=== PATIENT | female | born 1960 | race Caucasian/White ===

== ENCOUNTER 2019-01-18 07:41 | Inpatient (IN) | payer BC ==
[2019-01-14 11:18] LABS: BASOPHILS # (AUTO) 0.1 (0.0-0.1); BASOPHILS % 0.8 % (0.0-1.0); EOSINOPHILS # (AUTO) 0.2 (0.0-0.4); EOSINOPHILS % 2.9 % (0.0-6.0); HEMATOCRIT 40.7 % (34.2-44.1); HEMOGLOBIN 12.6 g/dL (12.0-16.0); LYMPHOCYTES # (AUTO) 2.1 (1.0-3.2); LYMPHOCYTES % 28.3 % (18.0-39.1); MEAN CORPUSCULAR HEMOGLOBIN 27.6 pg (28-32); MEAN CORPUSCULAR VOLUME 89.3 fL (81-99); MONOCYTES # (AUTO) 0.6 (0.2-0.8); MONOCYTES % 8.7 % (4.4-11.3); NEUTROPHILS # (AUTO) 4.3 (2.1-6.9); PLATELET COUNT 275 x10e3/uL (140-360); RED BLOOD COUNT 4.56 x10e6/uL (3.6-5.1); RED CELL DISTRIBUTION WIDTH 15.8 % (11.7-14.4)
[2019-01-14 11:38] LABS: ANION GAP 12.2 mmol/L (8-16); BLOOD UREA NITROGEN 19 mg/dL (7-26); BUN/CREATININE RATIO 26 (6-25); CALCIUM 9.4 mg/dL (8.4-10.2); CARBON DIOXIDE 32 mmol/L (22-29); CHLORIDE 98 mmol/L (98-107); CREATININE, SERUM 0.73 mg/dL (0.57-1.11); EST GLOMERULAR FILTRATION RATE > 60 ML/MIN (60-); GLUCOSE 105 mg/dL (74-118); POTASSIUM 4.2 mmol/L (3.5-5.1); SODIUM 138 mmol/L (136-145)
--- NOTE | 2019-01-14 12:00 | Diagnostic Imaging Report ---
EXAMINATION: CHEST 2 VIEWS INDICATION: Pre-operative COMPARISON: None FINDINGS: TUBES and LINES: None. LUNGS: The lung volumes are normal. No focal consolidation or pulmonary edema. PLEURA: No pleural effusion or pneumothorax. HEART AND MEDIASTINUM: The cardiomediastinal silhouette is normal in size and contour. Atherosclerotic calcifications of the thoracic aorta. BONES AND SOFT TISSUES: No acute fracture or dislocation. Degenerative changes of the visualized spine. UPPER ABDOMEN: No free air under the diaphragm. IMPRESSION: No focal pneumonia or pulmonary edema. Signed by: Silvio Echols MD on 01/14/2019 11:57 AM
[~2019-01-18] VITALS: Ht 165.1 cm; Wt 129.3 kg
[~2019-01-18 07:41] MED LIST: ASPIRIN81 MG PO; GRALISE600 MG PO; HYDROXYCHLOROQ200 MG PO; ISOSORBIDE MONO30 MG PO; METOPROLOL SUCC50 MG PO; MIRAPEX0.25 MG PO; PRAVASTATIN SOD10 MG PO; SPIRONOLACTONE25 MG PO; ULTRAM50 MG PO
--- OUTSIDE RECORDS SUMMARY | 2019-01-18 08:04 | XMS REPORT | Continuity of Care Document ---
Author Author [facility] Address Unknown Phone Unavailable Care Team Providers Care Lime Trimmer Name Role Phone [employer] Information Myagi Unavailable Unavailable Problems Problem Status Onset Date Classification Date Reported Comments Source M79.604 - PAIN IN RIGHT LEG Active 07/04/2016 [facility] [place] FHx: pneumonia Resolved Problem 11/23/2018 [facility], [facility] [place], [facility] [place] Hx of Sjogren's disease Resolved Problem 11/23/2018 [facility], [facility] [place], [facility] [place] Hx of osteoarthritis Resolved Problem 11/23/2018 [facility], [facility] [place], [facility] [place] High blood pressure Resolved Problem 11/23/2018 [facility], [facility] [place], [facility] [place] Morbid obesity Active Problem 11/23/2018 [facility], [facility] [place], [facility] [place] Osteoporosis Resolved Problem 11/23/2018 [facility], [facility] [place], [facility] [place] Small fiber polyneuropathy Resolved Problem 11/23/2018 [facility], [facility] [place], [facility] [place] Medications No Data Provided for This Section Allergies, Adverse Reactions, Alerts Substance Category Reaction Severity Reaction type Status Date Reported Comments Source Antihistamine Assertion Drug allergy Active [facility] Immunizations No Data Provided for This Section Results No Data Provided for This Section Pathology Reports No Data Provided for This Section Diagnostic Reports Report Value Date Source Hip bilat w pelvis and both lat hips DX Exam: Pelvis x- ray, one view and bilateral hip x-rays 2 views each Reason for Exam: - M16.9 Osteoarthritis of hip, unspecified; M19.90 Unspecified osteoarthritis, unspecified site Comparison Exam: None Discussion: No fractures or dislocations are seen within the pelvis or hips. The SI joints, pubic symphysis, and hip joints are intact. No evidence for avascular necrosis within the femoral heads. No suspicious osteoblastic or osteolytic lesions. No dilated loops of bowel within the visualized portions of the pelvis. Impression: 1. Unremarkable x-ray of the pelvis and bilateral hips. 01/01/2019 MAN[facility] Fidel Shoulder 2+ Views Bilateral DX EXAM: XR BILATERAL SHOULDER 3 VIEWS DATE: 12/16/2017 9:10 AM CDT INDICATION: - M06.9 Rheumatoid arthritis, unspecified COMPARISON: None TECHNIQUE: 3 views of the bilateral shoulders FINDINGS: Right shoulder: Moderate glenohumeral joint osteoarthrosis visualized. Mild osteophytes seen along the radial tuberosity consistent with rotator cuff pathology. Mild AC joint degenerative joint disease also visualized. There is moderate-sized subacromial spur. Left shoulder: Moderate glenohumeral joint osteoarthrosis visualized. Mild osteophytes seen along the radial tuberosity consistent with rotator cuff pathology. Mild AC joint degenerative joint disease also visualized. There is tiny subacromial spur. No soft tissue abnormality is identified. IMPRESSION: 1. Moderate osteoarthrosis of both shoulder joints. 2. Subacromial spur is worse on the right side. 3. Ossific densities along the rotator cuff insertion representing with significant tendinosis bilaterally. 12/16/2017 MANSI Burns Bone Density [employer] MA BONE DENSITY ASSESSMENT: 12/16/2017 CLINICAL DATA: Post menopausal. M81.8/M81.8 Other Osteoporosis Without Current Pathological Fracture RISK FACTORS: race. COMPARISON: 11/24/2015 Left femur neck using a Hologic unit from [facility] with reported high fracture risk, BMD of 0.527g/cm2, T-score of -2.90, Z-score of -1.70, 62.0% reference, and 73.0% age-match bone mineralization. 11/24/2015 Right femur neck using a Hologic unit from [facility] with reported high fracture risk, BMD of 0.537g/cm2, T-score of -2.80, Z-score of -1.60, 63.0% reference, and 75.0% age-match bone mineralization. 11/24/2015 AP L1-L4 region of spine using a Hologic unit from [facility] with reported medium fracture risk, BMD of 0.894g/cm2, T-score of -1.40, Z-score of -0.10, 85.0% reference, and 98.0% age- match bone mineralization. FINDINGS: Bone density evaluation was performed 12/16/2017 on the right femur neck using a Hologic unit. The BMD average for the exam is 0.342 g/cm2. The T-score is -4.60 and the Z-score is -3.30. Since the previous similar exam of 11/24/2015, there has been a -0.195 or -36.3% change in the BMD value which represents a slight interval decrease in bone density. This matches the World Health Organization&ap os;s criteria for osteoporosis and places the patient at a high risk for fracture. An additional bone density evaluation was performed 12/16/2017 on the left femur neck using a Hologic unit. The BMD average for the exam is 0.422 g/cm2. The T- score is -3.80 and the Z-score is -2.60. Since the previous similar exam of 11/24/2015, there has been a -0.105 or -19.9% change in the BMD value which represents a slight interval decrease in bone density. This matches the World Health Organization's criteria for osteoporosis and places the patient at a high risk for fracture. An additional bone density evaluation was performed 12/16/2017 on the right total femur area using a Hologic unit. The BMD average for the exam is 0.598 g/cm2. The T-score is -2.80 and the Z-score is -1.90. This matches the World Health Organization's criteria for osteoporosis and places the patient at a high risk for fracture. An additional bone density evaluation was performed 12/16/2017 on the left total femur area using a Hologic unit. The BMD average for the exam is 0.611 g/cm2. The T-score is -2.70 and the Z-score is -1.80. This matches the World Health Organization's criteria for osteoporosis and places the patient at a high risk for fracture. An additional bone density evaluation was performed 12/16/2017 on the AP L1-L4 region of spine using a Hologic unit. The BMD average for the exam is 0.866 g/cm2. The T-score is -1.60 and the Z-score is -0.20. Since the previous similar exam of 11/24/2015, there has been a -0.028 or -3.1% change in the BMD value which represents no significant interval change in bone density. This matches the World Health Organization's criteria for osteopenia and places the patient at a medium risk for fracture. IMPRESSION: SEVERE OSTEOPOROSIS Patient is at extremely high risk for fracture. Recheck of BMD in 1-2 years and patient consult w/primary care provider are recommended. This exam was interpreted at [id number] for [facility]. 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 CLINICAL INDICATION: bilateral leg pain. Suspect small fiber neuropathy, rule out L5 and S1 radiculopathy. TECHNIQUE: Multiplanar, multisequence MRI lumbar spine without IV contrast COMPARISON: Unavailable FINDINGS: For the purposes of enumeration, the lowest well formed intervertebral disc was counted as L5-S1 on this exam. INTRASPINAL CONTENTS/CONUS: The conus terminates at L1-L2. No definite dural based lesion. VERTEBRAE: The vertebrae are normal in height and alignment. No focal suspicious bone marrow signal abnormality. PARASPINAL SOFT TISSUES: No edema or definite masses. No aortic aneurysm. Disc spaces, spinal canal, and neural foramina: T12-L1. Intervertebral disc height and signal are maintained. Posterior elements are normal. There is no stenosis. L1-L2. Intervertebral discs is dehydrated with central zone annular fissuring. Facets are unremarkable. Central canal measures 13 mm. Neural foramina are patent. L2-L3. Loss of intervertebral disc height and signal with small diffuse bulge. Facets are unremarkable. Central canal measures 13 mm. Lateral recesses and neural foramina are patent. L3-L4. Intervertebral disc height and signal are maintained. Posterior elements are normal. There is no stenosis. L4-L5. Intervertebral disc is dehydrated without height loss. There is central zone annular fissuring. There is facet hypertrophy with ligamentous redundancy. Central canal measures 9 mm with no cauda equina crowding. Lateral recesses are patent. Neural foramina are patent. L5-S1. Intervertebral disc height and signal are maintained. Left facets are mildly enlarged. Central canal measures 10 mm, and there is an 'empty sac' appearance. Lateral recesses and neural foramina are patent. IMPRESSION: 1. Mild L4-L5 central canal stenosis without definite cauda equina mass effect. 2. No lumbar foraminal nerve root compression 3. 'Empty sella' appearance at L5-S1 suggestive of arachnoiditis, likely chronic 08/30/2016 MAN[facility] Parra Bone Density [employer] MA - Bone Density [employer] MA BONE DENSITY EVALUATION: 11/24/2015 CLINICAL DATA: Post menopausal. Drug Induced Osteoporosis. RISK FACTORS: race. FINDINGS: Bone density evaluation was performed 11/24/2015 on the AP L1-L4 region of spine using a Hologic unit. The BMD average for the exam is 0.894 g/cm2. The T-score is -1.40 and the Z-score is -0.10. These values indicate 85.0% of bone mineralization for young normals and 98.0% for age-matched controls. This matches the World Health Organization's criteria for osteopenia and places the patient at a medium risk for fracture. An additional bone density evaluation was performed 11/24/2015 on the right femur neck using a Hologic unit. The BMD average for the exam is 0.537 g/cm2. The T-score is -2.80 and the Z-score is -1.60. These values indicate 63.0% of bone mineralization for young normals and 75.0% for age-matched controls. This matches the World Health Organization's criteria for osteoporosis and places the patient at a high risk for fracture. An additional bone density evaluation was performed 11/24/2015 on the left femur neck using a Hologic unit. The BMD average for the exam is 0.527 g/cm2. The T- score is -2.90 and the Z-score is -1.70. These values indicate 62.0% of bone mineralization for young normals and 73.0% for age-matched controls. This matches the World Health Organization's criteria for osteoporosis and places the patient at a high risk for fracture. IMPRESSION: OSTEOPOROSIS Patient is at high risk for fracture. Recheck of BMD in 1-2 years and patient consult w/primary care provider are recommended. This exam was dictated and interpreted by [id number] for [facility]. Leida Bryant M.D. zina/víctor:11/24/2015 14:15:48 Regional Sales Director: Leonie MOORE (R)([place]), [facility] 11/24/2015 [facility] [place] Chest 2 views DX EXAM: XR CHEST 2 VIEWS DATE: 12/22/2014 INDICATION: 786.2 Cough/710.2 Sicca Syndrome COMPARISON: None available TECHNIQUE: Frontal and lateral chest radiographs DISCUSSION: The lungs are clear. No evidence for pleural effusion or pneumothorax. Heart is at the upper limits of normal in size. No acute bony abnormality is identified. IMPRESSION: No acute cardiopulmonary abnormality identified. 12/22/2014 [facility] Consultation Notes No Data Provided for This Section Discharge Summaries No Data Provided for This Section History and Physicals No Data Provided for This Section Vital Signs No Data Provided for This Section Encounters Location Location Details Encounter Type Encounter Number Reason For Visit Attending Provider ADM Date DC Date Status Source [facility] [place] [facility] [id number] Yogesh Corea 12/22/2014 12/23/2014 [facility] [place] Out[facility] [id number] Yogesh Corea 11/24/2015 11/25/2015 [facility] [place] [facility] [id number] Yogesh Corea 03/28/2016 03/29/2016 [facility] [place] [facility] [id number] [facility] Active [facility] [id number] [facility] Active [facility] [place] [facility] [id number] Addie Morse 08/30/2016 08/31/2016 [facility] [place] [facility] [place] [facility] [id number] Yogesh Corea 12/16/2017 [facility] [place] [facility] [id number] Yogesh Corea 12/16/2017 12/17/2017 [facility] [place] Out[facility] [id number] ADDIE UNIQUE 05/06/2018 Active [facility] Ambulatory Pre-Reg [id number] Addie Unique 05/06/2018 05/06/2018 [facility] Procedures Procedure Code Date Perfomer Comments Source Ankle fusion 93062045 [facility] [place] Hysterectomy [id number] [facility] [place] Ankle fusion [id number] [facility] Hysterectomy [id number] [facility] Ankle fusion [id number] [facility] [place] Hysterectomy [id number] [facility] [place] Assessment and Plan No Data Provided for This Section Plan of Care No Data Provided for This Section Social History Social History Date Source Social History TypeResponse Substance Abuse Use: None. Alcohol Never Smoking Status Former smoker; Ready to change: No; Concerns about tobacco use in household: No; Exposed at work; Lives with someone who smokes; Cigarette Smoking Last 365 Days No; Reg Smoking Cessation Counseling No entered on: 07/03/16 07/03/2016 [facility] Social History TypeResponse Substance Abuse Use: None. Alcohol Never Smoking Status Former smoker; Ready to change: No; Concerns about tobacco use in household: No; Exposed at work; Lives with someone who smokes; Cigarette Smoking Last 365 Days No; Reg Smoking Cessation Counseling No entered on: 07/03/16 07/03/2016 [facility] Social History TypeResponse Substance Abuse Use: None. Alcohol Never Smoking Status Former smoker; Ready to change: No; Concerns about tobacco use in household: No; Exposed at work; Lives with someone who smokes; Cigarette Smoking Last 365 Days No; Reg Smoking Cessation Counseling No 07/03/2016 [facility] Parra Family History No Data Provided for This Section Advance Directives No Data Provided for This Section Functional Status No Data Provided for This Section
--- OUTSIDE RECORDS SUMMARY | 2019-01-18 08:05 | XMS REPORT | Summary of Care ---
Author Author [facility] [place] Organization [facility] [place] Address Unknown Phone Unavailable Encounter HQ Daniel(FIN) [id number] Date(s): 12/16/17 - 12/16/17 [facility] [place] [address] [place] [phone] Discharge Disposition: Home or Self Care Attending Physician: Yogesh Corea MD Vital Signs No data available for this section Problem List Condition Effective Dates Status Health Status Informant FHx: Resolved pneumonia(Confirmed) Hx of Sjogren's Resolved disease(Confirmed) Hx of Resolved osteoarthritis(Confi rmed) High blood Resolved pressure(Confirmed) Morbid Active obesity(Confirmed) Osteoporosis(Confirm Resolved ed) Small fiber Resolved polyneuropathy(Confi rmed) Allergies, Adverse Reactions, Alerts Substance Reaction Severity Status Antihistamine Active Medications No data available for this section Results No data available for this section Immunizations No data available for this section Procedures Procedure Date Related Diagnosis Body Site Status Ankle fusion Completed Hysterectomy Completed Social History Social History Type Response Substance Abuse Use: None. Alcohol Never Smoking Status Former smoker; Ready to change: No; Concerns about tobacco use in household: No; Exposed at work; Lives with someone who smokes; Cigarette Smoking Last 365 Days No; Reg Smoking Cessation Counseling No entered on: 07/03/16 Assessment and Plan No data available for this section
--- OUTSIDE RECORDS SUMMARY | 2019-01-18 08:05 | XMS REPORT | Summary of Care ---
Author Author [facility] [place] Organization [facility] [place] Address Unknown Phone Unavailable Encounter HQ Daniel(FIN) [id number] Date(s): 12/16/17 - 12/16/17 [facility] [place] [address] [place] [phone] Discharge Disposition: Home or Self Care Attending [...]
--- OUTSIDE RECORDS SUMMARY | 2019-01-18 08:06 | XMS REPORT | Summary of Care ---
Author Author [facility] Organization [facility] Address Unknown Phone Unavailable Encounter HQ Daniel(FIN) [id number] Date(s): 05/06/18 - 05/06/18 [facility] [address] [facility] [address] [place] [address]- Attending Physician: Idris Morse MD Referring Physician: Zulay Dominguez MD Vital Signs No data available for [...]
--- OUTSIDE RECORDS SUMMARY | 2019-01-18 08:06 | XMS REPORT | Summary of Care ---
Author Organization Unknown Address Unknown Phone Unavailable Encounter HQ Encntr_alias(FIN) [id number] Date(s): 12/22/14 - 12/22/14 [facility] Outpatient Imaging [address] [phone] Discharge Disposition: Home Physician Attending: Yogesh Corea MD Vital Signs No data available for this section Problem List No data available for this section Allergies, Adverse Reactions, Alerts No data available for this section Medications No data available for this section Results No data available for this section Immunizations No data available for this section Procedures No data available for this section Social History No data available for this section Assessment and Plan No data available for this section
--- OUTSIDE RECORDS SUMMARY | 2019-01-18 08:06 | XMS REPORT | Summary of Care ---
Author Author [facility] [place] Organization [facility] [place] Address Unknown Phone Unavailable Encounter JEFE Sanchez(FIN) [id number] Date(s): 08/30/16 - 08/30/16 [facility] [place] [address] [place] [phone] Discharge Disposition: Home or Self Care Attending Physician: Idris Morse MD Vital Signs No data available for [...] Procedures Procedure Date Related Diagnosis Body Site Ankle fusion Hysterectomy Social History Social History Type Response Substance Abuse Use: None. Alcohol Never Smoking Status Former smoker; Ready to change: No; Concerns about tobacco use in household: No; Exposed at work; Lives with someone who smokes; Cigarette Smoking Last 365 Days No; Reg Smoking Cessation Counseling No Assessment and Plan No data available for this section
--- OUTSIDE RECORDS SUMMARY | 2019-01-18 08:06 | XMS REPORT | Summary of Care ---
Author Author [facility] [place] Address Unknown Phone Unavailable Encounter HQ Encntr_alias(FIN) [id number] Date(s): 03/28/16 - 03/28/16 [facility] [place] [address] [place] [phone] Discharge Disposition: Home or Self Care Attending [...]
--- OUTSIDE RECORDS SUMMARY | 2019-01-18 08:06 | XMS REPORT | Summary of Care ---
Author Author [facility] [place] [facility] [place] Address Unknown Phone Unavailable Encounter HQ Encntr_alias(FIN) [id number] Date(s): 11/24/15 - 11/24/15 [facility] [place] [address] [place] [phone] Discharge Disposition: Home Attending Physician: Yogesh Corea MD Vital Signs [...]
[2019-01-18] MEDS ORDERED: CEFAZOLIN SOD 1 GM/NS 50ML 100 ML IV ONE (08:07)
--- OUTSIDE RECORDS SUMMARY | 2019-01-18 08:07 | XMS REPORT ---
Author Author [facility] Address Unknown Phone Unavailable Care Team Providers Care Director Oracle Name Role Phone Huma KAN Unavailable Unavailable Payers Payer Name Policy Type Policy Number Effective Date Expiration Date Problems This patient has no known problems. Allergies, Adverse Reactions, Alerts Allergy Name Allergy Type Status Severity Reaction(s) Onset Date Inactive Date Treating Clinician Comments hydrocodone DA Active MO 2018-12-26 00:00:00 hydrocodone DA Active MO 2018-11-02 00:00:00 hydrocodone DA Active MO 2018-03-09 00:00:00 acetaminophen DA Active MO 2018-03-09 00:00:00 hydrocodone DA Active U 2009-08-27 00:00:00 acetaminophen DA Active U 2009-08-27 00:00:00 Medications This patient has no known medications. Results Test Description Test Time Test Comments Text Results Atomic Results Result Comments CHEST 2 VIEWS 2019-01-14 11:55:00 [place] [id number] Patient Name: MARIA ANTONIA FLOWERS MR #: [id number] : 1960 Age/Sex: 58/F Req #: [id number] Adm Physician: Ordered by: VIKTOR KAN MD Report #: [id number] Location: OR Room/Bed: Procedure: [id number] DX/CHEST 2 VIEWS Exam Date: 01/14/19 Exam Time: 1050 REPORT STATUS: Signed EXAMINATION: CHEST 2 VIEWS INDICATION: Pre-operative COMPARISON: None FINDINGS: TUBES and LINES: None. LUNGS: The lung volumes are normal. No focal consolidation or pulmonary edema. PLEURA: No pleural effusion or pneumothorax. HEART AND MEDIASTINUM: The cardiomediastinal silhouette is normal in size and contour. Atherosclerotic calcifications of the thoracic aorta. BONES AND SOFT TISSUES: No acute fracture or dislocation. Degenerative changes of the visualized spine. UPPER ABDOMEN: No free air under the diaphragm. IMPRESSION: No focal pneumonia or pulmonary edema. Signed by: Janusz Morris MD on 01/14/2019 11:57 AM Dictated By: JANUSZ MORRIS MD 1157 Transcribed By: KINGSLEY on 01/14/19 1157 COPY TO: VIKTOR KAN MD COMPREHENSIVE METABOLIC PANEL 2018-12-29 09:40:00 SODIUM (test code=NA) 140 mEq/L 134-147 POTASSIUM (test code=K) 4.4 mEq/L 3.4-5.0 CHLORIDE (test code=CL) 101 mEq/L 100-108 CARBON DIOXIDE (test code=CO2) 36 mEq/L 21-33 ANION GAP (test code=GAP) 7 0-20 GLUCOSE (test code=GLU) 99 mg/dL 70-110 BLOOD UREA NITROGEN (test code=BUN) 35 mg/dL 7-18 GLOMERULAR FILTRATION RATE (test code=GFR) 85.4 80-90 Units of measure=ml/min/1.73 m2 CREATININE (test code=CREAT) 0.7 mg/dL 0.6-1.3 TOTAL PROTEIN (test code=PROT) 7.0 g/dL 6.4-8.2 ALBUMIN (test code=ALB) 3.10 g/dL 3.4-5.0 CALCIUM (test code=CA) 8.8 mg/dL 8.0-10.5 BILIRUBIN TOTAL (test code=BILT) 0.10 mg/dL 0.0-1.0 SGOT/AST (test code=AST) 7 IUnit/L 15-37 SGPT/ALT (test code=ALT) 17 IUnit/L 15-65 ALKALINE PHOSPHATASE TOTAL (test code=ALKP) 86 IUnit/L 20-125 CBC W/AUTO [id number] 08:00:00* Test Item Value Reference Range Comments WHITE BLOOD CELL (test code=WBC) 14.12 x10 3/uL 4.5-11.0 RED BLOOD CELL (test code=RBC) 4.27 x10 6/uL 3.54-5.02 HEMOGLOBIN (test code=HGB) 11.6 g/dL 11.0-15.0 HEMATOCRIT (test code=HCT) 39.4 % 33.0-45.0 MEAN CELL VOLUME (test code=MCV) 92.3 fL 81.0-99.0 MEAN CELL HGB (test code=MCH) 27.2 pg 27.0-33.0 MEAN CELL HGB CONCETRATION (test code=MCHC) 29.4 g/dL 33.0-37.0 RED CELL DISTRIBUTION WIDTH CV (test code=RDW) 16.0 % 11.5-14.5 RED CELL DISTRIBUTION WIDTH SD (test code=RDW-SD) 54.8 fL 37.0-54.0 PLATELET COUNT (test code=PLT) 303 x10 3/uL 150-400 MEAN PLATELET VOLUME (test code=MPV) 11.4 fL 7.0-9.0 NEUTROPHIL % (test code=NT%) 76.3 % 56.0-77.0 IMMATURE GRANULOCYTE % (test code=IG%) 0.6 % 0.0-2.0 LYMPHOCYTE % (test code=LY%) 14.5 % 14.0-32.0 MONOCYTE % (test code=MO%) 8.5 % 4.8-9.0 EOSINOPHIL % (test code=EO%) 0.0 % 0.3-3.7 BASOPHIL % (test code=BA%) 0.1 % 0.0-2.0 NUCLEATED RBC % (test code=NRBC%) 0.0 % 0-0 NEUTROPHIL # (test code=NT#) 10.76 x10 3/uL 2.0-7.6 IMMATURE GRANULOCYTE # (test code=IG#) 0.09 x10 3/uL 0.00-0.03 LYMPHOCYTE # (test code=LY#) 2.05 x10 3/uL 1.0-3.8 MONOCYTE # (test code=MO#) 1.20 x10 3/uL 0.1-0.8 EOSINOPHIL # (test code=EO#) 0.00 x10 3/uL 0.0-0.2 BASOPHIL # (test code=BA#) 0.02 x10 3/uL 0.0-0.2 NUCLEATED RBC # (test code=NRBC#) 0.00 x10 3/uL 0.0-0.1 MANUAL DIFF REQUIRED (test code=MDIFF) NO B-TYPE NATRIURETIC [id number] 11:42:00* Test Item Value Reference Range Comments B-TYPE NATRIURETIC PEPTIDE (test code=BNP) 52.4 PG/ML 0-100 CBC W/AUTO [id number] 07:52:00* Test Item Value Reference Range Comments WHITE BLOOD CELL (test code=WBC) 11.47 x10 3/uL 4.5-11.0 RED BLOOD CELL (test code=RBC) 4.28 x10 6/uL 3.54-5.02 HEMOGLOBIN (test code=HGB) 11.7 g/dL 11.0-15.0 HEMATOCRIT (test code=HCT) 39.5 % 33.0-45.0 MEAN CELL VOLUME (test code=MCV) 92.3 fL 81.0-99.0 MEAN CELL HGB (test code=MCH) 27.3 pg 27.0-33.0 MEAN CELL HGB CONCETRATION (test code=MCHC) 29.6 g/dL 33.0-37.0 RED CELL DISTRIBUTION WIDTH CV (test code=RDW) 16.1 % 11.5-14.5 RED CELL DISTRIBUTION WIDTH SD (test code=RDW-SD) 54.4 fL 37.0-54.0 PLATELET COUNT (test code=PLT) 284 x10 3/uL 150-400 MEAN PLATELET VOLUME (test code=MPV) 11.5 fL 7.0-9.0 NEUTROPHIL % (test code=NT%) 90.7 % 56.0-77.0 IMMATURE GRANULOCYTE % (test code=IG%) 0.3 % 0.0-2.0 LYMPHOCYTE % (test code=LY%) 7.3 % 14.0-32.0 MONOCYTE % (test code=MO%) 1.5 % 4.8-9.0 EOSINOPHIL % (test code=EO%) 0.0 % 0.3-3.7 BASOPHIL % (test code=BA%) 0.2 % 0.0-2.0 NUCLEATED RBC % (test code=NRBC%) 0.0 % 0-0 NEUTROPHIL # (test code=NT#) 10.40 x10 3/uL 2.0-7.6 IMMATURE GRANULOCYTE # (test code=IG#) 0.04 x10 3/uL 0.00-0.03 LYMPHOCYTE # (test code=LY#) 0.84 x10 3/uL 1.0-3.8 MONOCYTE # (test code=MO#) 0.17 x10 3/uL 0.1-0.8 EOSINOPHIL # (test code=EO#) 0.00 x10 3/uL 0.0-0.2 BASOPHIL # (test code=BA#) 0.02 x10 3/uL 0.0-0.2 NUCLEATED RBC # (test code=NRBC#) 0.00 x10 3/uL 0.0-0.1 MANUAL DIFF REQUIRED (test code=MDIFF) NO COMPREHENSIVE METABOLIC [id number] 07:39:00* Test Item Value Reference Range Comments SODIUM (test code=NA) 130 mEq/L 134-147 POTASSIUM (test code=K) 4.5 mEq/L 3.4-5.0 CHLORIDE (test code=CL) 94 mEq/L 100-108 CARBON DIOXIDE (test code=CO2) 33 mEq/L 21-33 ANION GAP (test code=GAP) 8 0-20 GLUCOSE (test code=GLU) 164 mg/dL 70-110 BLOOD UREA NITROGEN (test code=BUN) 24 mg/dL 7-18 GLOMERULAR FILTRATION RATE (test code=GFR) 102.0 80-90 Units of measure=ml/min/1.73 m2 CREATININE (test code=CREAT) 0.6 mg/dL 0.6-1.3 TOTAL PROTEIN (test code=PROT) 7.4 g/dL 6.4-8.2 ALBUMIN (test code=ALB) 3.10 g/dL 3.4-5.0 CALCIUM (test code=CA) 9.1 mg/dL 8.0-10.5 BILIRUBIN TOTAL (test code=BILT) 0.20 mg/dL 0.0-1.0 SGOT/AST (test code=AST) 11 IUnit/L 15-37 SGPT/ALT (test code=ALT) 14 IUnit/L 15-65 ALKALINE PHOSPHATASE TOTAL (test code=ALKP) 98 IUnit/L 20-125 [id number] 07:39:00* Test Item Value Reference Range Comments PHOSPHOROUS (test code=PHOS) 3.0 mg/dL 2.5-4.9 [id number] 07:39:00* Test Item Value Reference Range Comments MAGNESIUM (test code=MAG) 2.00 mg/dL 1.8-2.4 [id number] 14:40:00* Test Item Value Reference Range Comments TROPONIN-I (test code=TROPI) < 0.015 ng/mL 0.000-0.045 Negative: <=0.045 Positive: >=0.046 Correlation with serial results, other cardiac markers andclinical findings is necessary to determine the clinicalsignificance of this result. Results using different methodologies should not be comparedto one another as quantitative results may vary by method. COMMENTS: 3 troponins total (including troponin done in ED)[id number] 11:11:00* Test Item Value Reference Range Comments TROPONIN-I (test code=TROPI) < 0.015 ng/mL 0.000-0.045 Negative: <=0.045 Positive: >=0.046 Correlation with serial results, other cardiac markers andclinical findings is necessary to determine the clinicalsignificance of this result. Results using different methodologies should not be comparedto one another as quantitative results may vary by method. COMMENTS: 3 troponins total (including troponin done in ED)- XR CHEST 1 V 2018-12-26 08:43:00 [place]: St: ADM Name: MARIA ANTONIA MEDEL [facility] : [birth year] Age/S: 58/F [address] [place] [address] Bl Unit #: [id number] Loc: [place], [place] [address] Phys: Jb Jones MD Acct: [id number] Dis Date: Status: ADM IN PHONE #: [phone] Exam Date: 12/26/2018 0839 FAX #: [phone] Reason: SOB EXAMS: CPT CODE: [id number] XR CHEST 1 V 35309 CHEST, SINGLE VIEW H ISTORY: Shortness of breath, dyspnea Comparison made to prior est x-ray dated 11/04/18. FINDINGS: The lungs are cl ear. Right upper lobe pneumonia has resolved compared to 11/04/18. The h eart is enlarged. Pulmonary vascularity is normal. IMPRESSION: Cardiomegaly. SL:01 at 0843 Reported and signed by: Mao Drew M.D. CC: Technologist: Leda Adrian RT(R); RT Tyson(R) Trnorrd Date/Time/By: 12/26/2018 (0843) : By: Fallon Orig Print D/T: S: 12/26/2018 (0846) PAGE 1 Signed Report B-TYPE NATRIURETIC [id number] 07:49:00* Test Item Value Reference Range Comments B-TYPE NATRIURETIC PEPTIDE (test code=BNP) 43.7 PG/ML 0-100 CBC W/AUTO [id number] 07:44:00* Test Item Value Reference Range Comments WHITE BLOOD CELL (test code=WBC) 10.69 x10 3/uL 4.5-11.0 RED BLOOD CELL (test code=RBC) 4.45 x10 6/uL 3.54-5.02 HEMOGLOBIN (test code=HGB) 12.2 g/dL 11.0-15.0 HEMATOCRIT (test code=HCT) 41.8 % 33.0-45.0 MEAN CELL VOLUME (test code=MCV) 93.9 fL 81.0-99.0 MEAN CELL HGB (test code=MCH) 27.4 pg 27.0-33.0 MEAN CELL HGB CONCETRATION (test code=MCHC) 29.2 g/dL 33.0-37.0 RED CELL DISTRIBUTION WIDTH CV (test code=RDW) 15.9 % 11.5-14.5 RED CELL DISTRIBUTION WIDTH SD (test code=RDW-SD) 55.5 fL 37.0-54.0 PLATELET COUNT (test code=PLT) 272 x10 3/uL 150-400 MEAN PLATELET VOLUME (test code=MPV) 11.2 fL 7.0-9.0 NEUTROPHIL % (test code=NT%) 64.6 % 56.0-77.0 IMMATURE GRANULOCYTE % (test code=IG%) 0.5 % 0.0-2.0 LYMPHOCYTE % (test code=LY%) 21.1 % 14.0-32.0 MONOCYTE % (test code=MO%) 9.4 % 4.8-9.0 EOSINOPHIL % (test code=EO%) 3.7 % 0.3-3.7 BASOPHIL % (test code=BA%) 0.7 % 0.0-2.0 NUCLEATED RBC % (test code=NRBC%) 0.0 % 0-0 NEUTROPHIL # (test code=NT#) 6.90 x10 3/uL 2.0-7.6 IMMATURE GRANULOCYTE # (test code=IG#) 0.05 x10 3/uL 0.00-0.03 LYMPHOCYTE # (test code=LY#) 2.26 x10 3/uL 1.0-3.8 MONOCYTE # (test code=MO#) 1.01 x10 3/uL 0.1-0.8 EOSINOPHIL # (test code=EO#) 0.40 x10 3/uL 0.0-0.2 BASOPHIL # (test code=BA#) 0.07 x10 3/uL 0.0-0.2 NUCLEATED RBC # (test code=NRBC#) 0.00 x10 3/uL 0.0-0.1 MANUAL DIFF REQUIRED (test code=MDIFF) NO TROPONIN-I [id number] 07:38:00* Test Item Value Reference Range Comments TROPONIN-I RAPID (test code=TROPIRAP) 0.01 ng/mL 0.00-0.08 Performed by certified radioisotope production operator at [facility] Negative: <=0.08 Positive: >=0.09An elevated troponin value alone is not sufficient todiagnose a myocardial infarction. Rather, the patient sclinical presentation (history, physical exam) and ECGshould be used in conjunction with troponin in thediagnostic evaluation of suspected myocardial infarction. Aserial sampling protocol is recommended to facilitate the identification of temporal changes in troponin levels characteristic of OR. LACTIC ACID [id number] 07:30:00* Test Item Value Reference Range Comments LACTIC ACID POC (test code=LACTP) 0.8 MMOL/L 0.90-1.70 Performed by certified radioisotope production operator at [facility] CHEMISTRY 8 [id number] 07:30:00* Test Item Value Reference Range Comments ISTAT-SODIUM (test code=NAP) MMOL/L 134-147 ISTAT-POTASSIUM (test code=KP) MMOL/L 3.4-5.0 ISTAT-CHLORIDE (test code=CLP) MMOL/L 100-108 ISTAT CARBON DIOXIDE (test code=ISTAT-CO2) mmol/L 21-33 ISTAT CALCIUM IONIZED (test code=ISTAT-VIKASH) MG/DL 1.12-1.32 ISTAT-GLUCOSE (test code=GLUP) MG/DL 70-110 ISTAT-BUN (test code=BUNP) MG/DL 7-18 BEDSIDE CREATININE (test code=CREATBED) MG/DL 0.6-1.3 GLOMERULAR FILTRATION RATE POC (test code=GFRBED) 108 ML/MIN CHEMISTRY 8 [id number] 07:30:00* Test Item Value Reference Range Comments ISTAT-SODIUM (test code=NAP) 140 MMOL/L 134-147 ISTAT-POTASSIUM (test code=KP) 4.6 MMOL/L 3.4-5.0 ISTAT-CHLORIDE (test code=CLP) 97 MMOL/L 100-108 Performed by certified radioisotope production operator at [facility] ISTAT CARBON DIOXIDE (test code=ISTAT-CO2) 37.0 mmol/L 21-33 ISTAT CALCIUM IONIZED (test code=ISTAT-VIKASH) 1.14 MG/DL 1.12-1.32 ISTAT-GLUCOSE (test code=GLUP) 126 MG/DL 70-110 ISTAT-BUN (test code=BUNP) 17 MG/DL 7-18 BEDSIDE CREATININE (test code=CREATBED) 0.6 MG/DL 0.6-1.3 GLOMERULAR FILTRATION RATE POC (test code=GFRBED) 108 ML/MIN [id number] 08:03:00* Test Item Value Reference Range Comments GLUBED (test code=GLUBED) 169 MG/DL 70-110 Performed by certified radioisotope production operator at [facility] BASIC METABOLIC [id number] 06:39:00* Test Item Value Reference Range Comments SODIUM (test code=NA) 139 mEq/L 134-147 POTASSIUM (test code=K) 4.1 mEq/L 3.4-5.0 CHLORIDE (test code=CL) 97 mEq/L 100-108 CARBON DIOXIDE (test code=CO2) 38 mEq/L 21-33 ANION GAP (test code=GAP) 8 0-20 GLUCOSE (test code=GLU) 237 mg/dL 70-110 BLOOD UREA NITROGEN (test code=BUN) 33 mg/dL 7-18 GLOMERULAR FILTRATION RATE (test code=GFR) 73.2 80-90 Units of measure=ml/min/1.73 m2 CREATININE (test code=CREAT) 0.8 mg/dL 0.6-1.3 CALCIUM (test code=CA) 8.7 mg/dL 8.0-10.5 [id number] 06:39:00* Test Item Value Reference Range Comments PHOSPHOROUS (test code=PHOS) 4.2 mg/dL 2.5-4.9 [id number] 06:39:00* Test Item Value Reference Range Comments MAGNESIUM (test code=MAG) 2.50 mg/dL 1.8-2.4 CBC W/AUTO [id number] 05:51:00* Test Item Value Reference Range Comments WHITE BLOOD CELL (test code=WBC) 15.77 x10 3/uL 4.5-11.0 RED BLOOD CELL (test code=RBC) 4.13 x10 6/uL 3.54-5.02 HEMOGLOBIN (test code=HGB) 10.7 g/dL 11.0-15.0 HEMATOCRIT (test code=HCT) 36.3 % 33.0-45.0 MEAN CELL VOLUME (test code=MCV) 87.9 fL 81.0-99.0 MEAN CELL HGB (test code=MCH) 25.9 pg 27.0-33.0 MEAN CELL HGB CONCETRATION (test code=MCHC) 29.5 g/dL 33.0-37.0 RED CELL DISTRIBUTION WIDTH CV (test code=RDW) 15.9 % 11.5-14.5 RED CELL DISTRIBUTION WIDTH SD (test code=RDW-SD) 51.8 fL 37.0-54.0 PLATELET COUNT (test code=PLT) 420 x10 3/uL 150-400 MEAN PLATELET VOLUME (test code=MPV) 10.8 fL 7.0-9.0 NEUTROPHIL % (test code=NT%) 78.5 % 56.0-77.0 IMMATURE GRANULOCYTE % (test code=IG%) 1.6 % 0.0-2.0 LYMPHOCYTE % (test code=LY%) 14.0 % 14.0-32.0 MONOCYTE % (test code=MO%) 5.7 % 4.8-9.0 EOSINOPHIL % (test code=EO%) 0.1 % 0.3-3.7 BASOPHIL % (test code=BA%) 0.1 % 0.0-2.0 NUCLEATED RBC % (test code=NRBC%) 0.0 % 0-0 NEUTROPHIL # (test code=NT#) 12.39 x10 3/uL 2.0-7.6 IMMATURE GRANULOCYTE # (test code=IG#) 0.25 x10 3/uL 0.00-0.03 LYMPHOCYTE # (test code=LY#) 2.20 x10 3/uL 1.0-3.8 MONOCYTE # (test code=MO#) 0.90 x10 3/uL 0.1-0.8 EOSINOPHIL # (test code=EO#) 0.01 x10 3/uL 0.0-0.2 BASOPHIL # (test code=BA#) 0.02 x10 3/uL 0.0-0.2 NUCLEATED RBC # (test code=NRBC#) 0.00 x10 3/uL 0.0-0.1 MANUAL DIFF REQUIRED (test code=MDIFF) NO [id number] 20:45:00* Test Item Value Reference Range Comments GLUBED (test code=GLUBED) 288 MG/DL 70-110 Performed by certified radioisotope production operator at [facility] [id number] 16:57:00* Test Item Value Reference Range Comments GLUBED (test code=GLUBED) 356 MG/DL 70-110 Performed by certified radioisotope production operator at [facility] [id number] 13:05:00* Test Item Value Reference Range Comments GLUBED (test code=GLUBED) 303 MG/DL 70-110 Performed by certified radioisotope production operator at [facility] [id number] 08:38:00* Test Item Value Reference Range Comments GLUBED (test code=GLUBED) 330 MG/DL 70-110 Performed by certified radioisotope production operator at [facility] CBC W/AUTO [id number] 08:04:00* Test Item Value Reference Range Comments WHITE BLOOD CELL (test code=WBC) 18.79 x10 3/uL 4.5-11.0 RED BLOOD CELL (test code=RBC) 4.01 x10 6/uL 3.54-5.02 HEMOGLOBIN (test code=HGB) 10.6 g/dL 11.0-15.0 HEMATOCRIT (test code=HCT) 35.2 % 33.0-45.0 MEAN CELL VOLUME (test code=MCV) 87.8 fL 81.0-99.0 MEAN CELL HGB (test code=MCH) 26.4 pg 27.0-33.0 MEAN CELL HGB CONCETRATION (test code=MCHC) 30.1 g/dL 33.0-37.0 RED CELL DISTRIBUTION WIDTH CV (test code=RDW) 16.2 % 11.5-14.5 RED CELL DISTRIBUTION WIDTH SD (test code=RDW-SD) 52.8 fL 37.0-54.0 PLATELET COUNT (test code=PLT) 425 x10 3/uL 150-400 MEAN PLATELET VOLUME (test code=MPV) 11.4 fL 7.0-9.0 NEUTROPHIL % (test code=NT%) 89.0 % 56.0-77.0 IMMATURE GRANULOCYTE % (test code=IG%) 0.9 % 0.0-2.0 LYMPHOCYTE % (test code=LY%) 5.7 % 14.0-32.0 MONOCYTE % (test code=MO%) 4.2 % 4.8-9.0 EOSINOPHIL % (test code=EO%) 0.0 % 0.3-3.7 BASOPHIL % (test code=BA%) 0.2 % 0.0-2.0 NUCLEATED RBC % (test code=NRBC%) 0.0 % 0-0 NEUTROPHIL # (test code=NT#) 16.73 x10 3/uL 2.0-7.6 IMMATURE GRANULOCYTE # (test code=IG#) 0.17 x10 3/uL 0.00-0.03 LYMPHOCYTE # (test code=LY#) 1.08 x10 3/uL 1.0-3.8 MONOCYTE # (test code=MO#) 0.78 x10 3/uL 0.1-0.8 EOSINOPHIL # (test code=EO#) 0.00 x10 3/uL 0.0-0.2 BASOPHIL # (test code=BA#) 0.03 x10 3/uL 0.0-0.2 NUCLEATED RBC # (test code=NRBC#) 0.00 x10 3/uL 0.0-0.1 MANUAL DIFF REQUIRED (test code=MDIFF) NO BASIC METABOLIC [id number] 07:39:00* Test Item Value Reference Range Comments SODIUM (test code=NA) 138 mEq/L 134-147 POTASSIUM (test code=K) 4.5 mEq/L 3.4-5.0 CHLORIDE (test code=CL) 98 mEq/L 100-108 CARBON DIOXIDE (test code=CO2) 33 mEq/L 21-33 ANION GAP (test code=GAP) 12 0-20 GLUCOSE (test code=GLU) 361 mg/dL 70-110 BLOOD UREA NITROGEN (test code=BUN) 35 mg/dL 7-18 GLOMERULAR FILTRATION RATE (test code=GFR) 56.6 80-90 Units of measure=ml/min/1.73 m2 CREATININE (test code=CREAT) 1.0 mg/dL 0.6-1.3 CALCIUM (test code=CA) 8.7 mg/dL 8.0-10.5 [id number] 07:39:00* Test Item Value Reference Range Comments PHOSPHOROUS (test code=PHOS) 3.6 mg/dL 2.5-4.9 [id number] 07:39:00* Test Item Value Reference Range Comments MAGNESIUM (test code=MAG) 2.40 mg/dL 1.8-2.4 [id number] 20:48:00* Test Item Value Reference Range Comments GLUBED (test code=GLUBED) 300 MG/DL 70-110 Performed by certified radioisotope production operator at [facility] [id number] 18:09:00* Test Item Value Reference Range Comments GLUBED (test code=GLUBED) 331 MG/DL 70-110 Performed by certified radioisotope production operator at [facility] [id number] 12:38:00* Test Item Value Reference Range Comments GLUBED (test code=GLUBED) 286 MG/DL 70-110 Performed by certified radioisotope production operator at [facility] HGBA1C%2018-11-04 10:53:00* Test Item Value Reference Range Comments HGBA1C% (test code=HGBA1C%) 7.1 %A1C 4.8-6.0 - XR CHEST 1 [id number] 08:15:00 FAX: Cassius Altman MD [phone] [place]: St: ADM FAX: Sae Taylor MD [phone] Name: MARIA ANTONIA FLOWERS [facility] : 1960 Age/S: 58/F [address] [place] [address] Unit #: [id number] Loc: G.M[address] [place] [address] Phys: Cassius Davies MD Acct: [id number] Dis Date: Status: ADM IN PHONE #: [phone] Exam Date: 11/04/2018 0550 FAX #: [phone] Reason: Pneumonia EXAMS: CPT CODE: [id number] XR CHEST 1 V 90368 CLINICAL HISTORY: Pneumonia, severe sepsis. COMPARISON: November 02, 2018 at 2306. Portable film of the chest performed at 0525 on November 04, 2018 demonstrates monitor leads in place. Heart size is normal and there is evidence of confluent alveolar opacity in right upper lobe compatible with pneumonia. Overall better aeration of both lungs is seen compared to previous examination. No other significant or change is noted since previous study. IMPRESSION: Persistent right upper lobe opacity with better aeration of both lungs compared to previous examination. at 0815 Reported and signed by: Jasper Elam M.D. CC: Cassius Davies MD; Sae Taylor MD Technologist: Kami Stephen, RT(R); Rodolfo Sánchez RT(R) Trnscrd Date/Time/By: 11/04/2018 (814) : By: Lacho Orig Print D/T: S: 11/04/2018 (817) PAGE 1 Signed Report BASIC METABOLIC [id number] 07:03:00* Test Item Value Reference Range Comments SODIUM (test code=NA) 138 mEq/L 134-147 POTASSIUM (test code=K) 4.6 mEq/L 3.4-5.0 CHLORIDE (test code=CL) 101 mEq/L 100-108 CARBON DIOXIDE (test code=CO2) 31 mEq/L 21-33 ANION GAP (test code=GAP) 11 0-20 GLUCOSE (test code=GLU) 373 mg/dL 70-110 BLOOD UREA NITROGEN (test code=BUN) 29 mg/dL 7-18 GLOMERULAR FILTRATION RATE (test code=GFR) 63.9 80-90 Units of measure=ml/min/1.73 m2 CREATININE (test code=CREAT) 0.9 mg/dL 0.6-1.3 CALCIUM (test code=CA) 8.4 mg/dL 8.0-10.5 [id number] 07:03:00* Test Item Value Reference Range Comments MAGNESIUM (test code=MAG) 2.60 mg/dL 1.8-2.4 CBC W/AUTO [id number] 06:30:00* Test Item Value Reference Range Comments WHITE BLOOD CELL (test code=WBC) 18.85 x10 3/uL 4.5-11.0 RED BLOOD CELL (test code=RBC) 3.80 x10 6/uL 3.54-5.02 HEMOGLOBIN (test code=HGB) 10.0 g/dL 11.0-15.0 HEMATOCRIT (test code=HCT) 33.6 % 33.0-45.0 MEAN CELL VOLUME (test code=MCV) 88.4 fL 81.0-99.0 MEAN CELL HGB (test code=MCH) 26.3 pg 27.0-33.0 MEAN CELL HGB CONCETRATION (test code=MCHC) 29.8 g/dL 33.0-37.0 RED CELL DISTRIBUTION WIDTH CV (test code=RDW) 16.2 % 11.5-14.5 RED CELL DISTRIBUTION WIDTH SD (test code=RDW-SD) 53.2 fL 37.0-54.0 PLATELET COUNT (test code=PLT) 356 x10 3/uL 150-400 MEAN PLATELET VOLUME (test code=MPV) 11.0 fL 7.0-9.0 NEUTROPHIL % (test code=NT%) 91.6 % 56.0-77.0 IMMATURE GRANULOCYTE % (test code=IG%) 0.8 % 0.0-2.0 LYMPHOCYTE % (test code=LY%) 4.0 % 14.0-32.0 MONOCYTE % (test code=MO%) 3.4 % 4.8-9.0 EOSINOPHIL % (test code=EO%) 0.0 % 0.3-3.7 BASOPHIL % (test code=BA%) 0.2 % 0.0-2.0 NUCLEATED RBC % (test code=NRBC%) 0.0 % 0-0 NEUTROPHIL # (test code=NT#) 17.27 x10 3/uL 2.0-7.6 IMMATURE GRANULOCYTE # (test code=IG#) 0.15 x10 3/uL 0.00-0.03 LYMPHOCYTE # (test code=LY#) 0.75 x10 3/uL 1.0-3.8 MONOCYTE # (test code=MO#) 0.65 x10 3/uL 0.1-0.8 EOSINOPHIL # (test code=EO#) 0.00 x10 3/uL 0.0-0.2 BASOPHIL # (test code=BA#) 0.03 x10 3/uL 0.0-0.2 NUCLEATED RBC # (test code=NRBC#) 0.00 x10 3/uL 0.0-0.1 MANUAL DIFF REQUIRED (test code=MDIFF) NO [id number] 06:01:00* Test Item Value Reference Range Comments GLUBED (test code=GLUBED) 355 MG/DL 70-110 Performed by certified radioisotope production operator at [facility] [id number] 00:01:00* Test Item Value Reference Range Comments GLUBED (test code=GLUBED) 220 MG/DL 70-110 Performed by certified radioisotope production operator at [facility] [id number] 17:54:00* Test Item Value Reference Range Comments GLUBED (test code=GLUBED) 212 MG/DL 70-110 Performed by certified radioisotope production operator at [facility] [id number] 13:31:00* Test Item Value Reference Range Comments GLUBED (test code=GLUBED) 169 MG/DL 70-110 Performed by certified radioisotope production operator at [facility] [id number] 08:00:00* Test Item Value Reference Range Comments TROPONIN-I (test code=TROPI) < 0.015 ng/mL 0.000-0.045 Negative: <=0.045 Positive: >=0.046 Correlation with serial results, other cardiac markers andclinical findings is necessary to determine the clinicalsignificance of this result. Results using different methodologies should not be comparedto one another as quantitative results may vary by method. COMMENTS: 3 troponins total (including troponin done in ED)[id number] 05:35:00* Test Item Value Reference Range Comments GLUBED (test code=GLUBED) 220 MG/DL 70-110 Performed by certified radioisotope production operator at [facility] [id number] 04:14:00* Test Item Value Reference Range Comments TROPONIN-I (test code=TROPI) < 0.015 ng/mL 0.000-0.045 Negative: <=0.045 Positive: >=0.046 Correlation with serial results, other cardiac markers andclinical findings is necessary to determine the clinicalsignificance of this result. Results using different methodologies should not be comparedto one another as quantitative results may vary by method. COMMENTS: 3 troponins total (including troponin done in ED)B-TYPE NATRIURETIC [id number] 01:58:00* Test Item Value Reference Range Comments B-TYPE NATRIURETIC PEPTIDE (test code=BNP) 30.9 PG/ML 0-100 URINALYSIS [id number] 01:47:00* Test Item Value Reference Range Comments UA COLOR (test code=COLU) STRAW YEL/STRAW UA APPEARANCE (test code=APPU) CLEAR CLEAR UA GLUCOSE DIPSTICK (test code=DGLUU) NEGATIVE NEGATIVE UA BILIRUBIN DIPSTICK (test code=BILU) NEGATIVE NEGATIVE UA KETONE DIPSTICK (test code=KETU) NEGATIVE NEGATIVE UA SPECIFIC GRAVITY (test code=SGU) 1.009 1.005-1.030 UA BLOOD DIPSTICK (test code=NEYMAR) 2+ NEGATIVE UA PH DIPSTICK (test code=LIZET) 5.0 5.0-7.0 UA PROTEIN DIPSTICK (test code=PROU) NEGATIVE NEGATIVE UA UROBILINIOGEN DIPSTICK (test code=URO) 0.2 mg/dL 0.2-1.0 UA NITRITE DIPSTICK (test code=JOSEPHINE) NEGATIVE NEGATIVE UA LEUKOCYTE ESTERASE DIPSTICK (test code=LEUU) NEGATIVE NEGATIVE UA WBC (test code=WBCU) 0-3 WBC/HPF 0-3 UA RBC (test code=RBCU) 0-3 RBC/HPF 0-3 UA BACTERIA (test code=BACU) TRACE /HPF NONE SEEN UA SQUAMOUS CELLS (test code=SQU) 0-5 /HPF NONE SEEN UA MUCUS (test code=MUCU) TRACE /LPF NONE SEEN COMMENTS: Clean CatchINFLUENZA A [id number] 01:07:00* Test Item Value Reference Range Comments INFLUENZA A (test code=FLUAPCR) Negative Negative INFLUENZA B (test code=FLUBPCR) Negative Negative BASIC METABOLIC [id number] 00:44:00* Test Item Value Reference Range Comments SODIUM (test code=NA) 137 mEq/L 134-147 POTASSIUM (test code=K) 4.5 mEq/L 3.4-5.0 CHLORIDE (test code=CL) 103 mEq/L 100-108 CARBON DIOXIDE (test code=CO2) 30 mEq/L 21-33 ANION GAP (test code=GAP) 9 0-20 GLUCOSE (test code=GLU) 167 mg/dL 70-110 BLOOD UREA NITROGEN (test code=BUN) 24 mg/dL 7-18 GLOMERULAR FILTRATION RATE (test code=GFR) 63.9 80-90 Units of measure=ml/min/1.73 m2 CREATININE (test code=CREAT) 0.9 mg/dL 0.6-1.3 CALCIUM (test code=CA) 8.3 mg/dL 8.0-10.5 HEPATIC FUNCTION [id number] 00:44:00* Test Item Value Reference Range Comments TOTAL PROTEIN (test code=PROT) 7.8 g/dL 6.4-8.2 ALBUMIN (test code=ALB) 2.50 g/dL 3.4-5.0 BILIRUBIN TOTAL (test code=BILT) 0.40 mg/dL 0.0-1.0 BILIRUBIN DIRECT (test code=BILD) < 0.10 MG/DL 0.0-0.30 BILIRUBIN INDIRECT (test code=BILIND) 0.30 MG/DL SGOT/AST (test code=AST) 31 IUnit/L 15-37 SGPT/ALT (test code=ALT) 20 IUnit/L 15-65 ALKALINE PHOSPHATASE TOTAL (test code=ALKP) 143 IUnit/L 20-125 [id number] 00:44:00* Test Item Value Reference Range Comments LIPASE (test code=LIP) 49 IUnit/L 73-393 [id number] 00:44:00* Test Item Value Reference Range Comments MAGNESIUM (test code=MAG) 2.10 mg/dL 1.8-2.4 [id number] 00:44:00* Test Item Value Reference Range Comments TROPONIN-I (test code=TROPI) < 0.015 ng/mL 0.000-0.045 Negative: <=0.045 Positive: >=0.046 Correlation with serial results, other cardiac markers andclinical findings is necessary to determine the clinicalsignificance of this result. Results using different methodologies should not be comparedto one another as quantitative results may vary by method. PROTHROMBIN [id number] 00:34:00* Test Item Value Reference Range Comments PROTHROMBIN TIME PATIENT (test code=PTP) 12.4 SECONDS 9.3-12.9 INTERNATIONAL NORMAL RATIO (test code=INR) 1.1 0.8-1.2 TARGET INR BY INDICATION Indication INR1. Prophylaxis of venous thrombosis 2.0 - 3.0 (orthopedic surgery), Prophylaxis of venous thrombosis (other than high-risk surgery), Treatment of Deep Vein Thrombosis/Pulmonary Embolism, Prevention of systemic embolism - Tissue heart valves, Acute Myocardial Infarction (to prevent systemic embolism), Valvular heart disease, Atrial Fibrillation, Bileaflet mechanical valve in aortic position.2. Mechanical prosthetic valves (high risk), 2.5 - 3.5 Presence of Lupus Anticoagulant or Antiphospholipid Antibodies, Prevention of systemic embolism - Acute Myocardial Infarction (to prevent recurrent infarct). THROMBOPLASTIN TIME [id number] 00:34:00* Test Item Value Reference Range Comments THROMBOPLASTIN TIME PARTIAL (test code=PTT) 27.5 Seconds 25.0-39.5 Therapeutic Range: 50.4 - 88.3 Seconds Effective 10/20/2018 CBC W/AUTO [id number] 00:27:00* Test Item Value Reference Range Comments WHITE BLOOD CELL (test code=WBC) 20.02 x10 3/uL 4.5-11.0 RED BLOOD CELL (test code=RBC) 4.29 x10 6/uL 3.54-5.02 HEMOGLOBIN (test code=HGB) 11.4 g/dL 11.0-15.0 HEMATOCRIT (test code=HCT) 37.6 % 33.0-45.0 MEAN CELL VOLUME (test code=MCV) 87.6 fL 81.0-99.0 MEAN CELL HGB (test code=MCH) 26.6 pg 27.0-33.0 MEAN CELL HGB CONCETRATION (test code=MCHC) 30.3 g/dL 33.0-37.0 RED CELL DISTRIBUTION WIDTH CV (test code=RDW) 16.2 % 11.5-14.5 RED CELL DISTRIBUTION WIDTH SD (test code=RDW-SD) 52.1 fL 37.0-54.0 PLATELET COUNT (test code=PLT) 331 x10 3/uL 150-400 MEAN PLATELET VOLUME (test code=MPV) 11.6 fL 7.0-9.0 NEUTROPHIL % (test code=NT%) 81.9 % 56.0-77.0 IMMATURE GRANULOCYTE % (test code=IG%) 1.2 % 0.0-2.0 LYMPHOCYTE % (test code=LY%) 7.2 % 14.0-32.0 MONOCYTE % (test code=MO%) 9.2 % 4.8-9.0 EOSINOPHIL % (test code=EO%) 0.2 % 0.3-3.7 BASOPHIL % (test code=BA%) 0.3 % 0.0-2.0 NUCLEATED RBC % (test code=NRBC%) 0.0 % 0-0 NEUTROPHIL # (test code=NT#) 16.39 x10 3/uL 2.0-7.6 IMMATURE GRANULOCYTE # (test code=IG#) 0.24 x10 3/uL 0.00-0.03 LYMPHOCYTE # (test code=LY#) 1.44 x10 3/uL 1.0-3.8 MONOCYTE # (test code=MO#) 1.84 x10 3/uL 0.1-0.8 EOSINOPHIL # (test code=EO#) 0.05 x10 3/uL 0.0-0.2 BASOPHIL # (test code=BA#) 0.06 x10 3/uL 0.0-0.2 NUCLEATED RBC # (test code=NRBC#) 0.00 x10 3/uL 0.0-0.1 MANUAL DIFF REQUIRED (test code=MDIFF) NO - XR CHEST 1 [id number] 23:21:00 FAX: Marky Cao MD [phone] [place]: St: PRE Name: Kimber MARCUSMARIA ANTONIA [facility] : [birth year] Age/S: 58/F [address] [place] [address] Unit #: [id number] Loc: [address] [address] Phys: Marky Cao MD Acct: [id number] Dis Date: Status: PRE ER PHONE #: [phone] Exam Date: 11/02/2018 2315 FAX #: [phone] Reason: SOB EXAMS: CPT CODE: [id number] XR CHEST 1 V 11268 PROCEDURE: - XR CHEST 1 V INDICATION: 58 years Female, SOB. COMPARISON: Chest x-ray 09/04/2018. FINDINGS: Right upper lobe confluent airspace disease. Costophrenic angles are sharp. Cardiac silhouette remains enlarged but s table. No pneumothorax IMPRESSION: Right upper lobe pneum onia. A verbal report of the impression(s) is conveyed to Edyumiko Cao MD on 11/02/2018 11:21 PM. SL: JHAbbieH at 2321 Reported and signed by: Elliot Hollins M.D. CC: Delbert Cao MD Technologist: Kami smart RT(R) Trnscrd Date/Time/By: 11/02/2018 (232 1) : By: [email or web address] Orig Print D/T: S: 11/02/2018 (8369) PAGE 1 Signed Report BASIC METABOLIC [id number] 14:25:00* Test Item Value Reference Range Comments SODIUM (test code=NA) 137 mEq/L 134-147 POTASSIUM (test code=K) 4.0 mEq/L 3.4-5.0 CHLORIDE (test code=CL) 93 mEq/L 100-108 CARBON DIOXIDE (test code=CO2) 43 mEq/L 21-33 ANION GAP (test code=GAP) 5 0-20 GLUCOSE (test code=GLU) 174 mg/dL 70-110 BLOOD UREA NITROGEN (test code=BUN) 35 mg/dL 7-18 GLOMERULAR FILTRATION RATE (test code=GFR) 73.2 80-90 Units of measure=ml/min/1.73 m2 CREATININE (test code=CREAT) 0.8 mg/dL 0.6-1.3 CALCIUM (test code=CA) 8.8 mg/dL 8.0-10.5 [id number] 14:25:00* Test Item Value Reference Range Comments MAGNESIUM (test code=MAG) 2.30 mg/dL 1.8-2.4 - DUP VEIN UNI/[id number] 15:43:00 Name: MARIA ANTONIA FLOWERS [facility] : 1960 Age/S: 58 / F [address] [place] [address] Unit #: [id number] Loc: [place] [address] Phys: Lorri Song NP Acct: [id number] Dis Date: Status: ADM IN PHONE #: [phone] Exam Date: 09/09/2018 1540 FAX #: [phone] Reason: R/O DVT EXAMS: CPT CODE: [id number] DUP VEIN UNI/LTD 17465 PROCEDURE: UNILATERAL LOWER EXTREMITY VENOUS ULTRASOUND INDICATION: 58-year-old female with left lower extremity edema and redness COMPARISON: None. TECHNIQUE: Sonographic evaluation of the left lower extremity veins was performed using high resolution B-mode, pulse and color Doppler imaging. FINDINGS: The common femoral, femoral, popliteal and visualized calf veins are patent with venous waveforms. Thrombus noted in the mid and distal left saphenous vein. The saphenofemoral junction is unremarkable. IMPRESSION: 1. No deep venous thrombosis identified in the left lower extremity. 2. Thrombus noted in the mid and distal great saphenous vein, a superficial vein. SL: [id number] at 1543 Reported and signed by: Roly Muñoz M.D. CC: Denise Bullock MD; Lorri Song NP Technologist: Swetha Marks Trnorb Date/Time: 09/09/2018 (760) [id number] Orig Print D/T: S: 09/09/2018 (1124) Probe: PAGE 1 Signed Report BASIC METABOLIC [id number] 08:17:00* Test Item Value Reference Range Comments SODIUM (test code=NA) 138 mEq/L 134-147 POTASSIUM (test code=K) 4.6 mEq/L 3.4-5.0 CHLORIDE (test code=CL) 100 mEq/L 100-108 CARBON DIOXIDE (test code=CO2) 32 mEq/L 21-33 ANION GAP (test code=GAP) 11 0-20 GLUCOSE (test code=GLU) 283 mg/dL 70-110 BLOOD UREA NITROGEN (test code=BUN) 36 mg/dL 7-18 GLOMERULAR FILTRATION RATE (test code=GFR) 73.2 80-90 Units of measure=ml/min/1.73 m2 CREATININE (test code=CREAT) 0.8 mg/dL 0.6-1.3 CALCIUM (test code=CA) 8.7 mg/dL 8.0-10.5 CBC W/AUTO [id number] 07:46:00* Test Item Value Reference Range Comments WHITE BLOOD CELL (test code=WBC) 17.91 x10 3/uL 4.5-11.0 RED BLOOD CELL (test code=RBC) 4.64 x10 6/uL 3.54-5.02 HEMOGLOBIN (test code=HGB) 12.6 g/dL 11.0-15.0 HEMATOCRIT (test code=HCT) 44.1 % 33.0-45.0 MEAN CELL VOLUME (test code=MCV) 95.0 fL 81.0-99.0 MEAN CELL HGB (test code=MCH) 27.2 pg 27.0-33.0 MEAN CELL HGB CONCETRATION (test code=MCHC) 28.6 g/dL 33.0-37.0 RED CELL DISTRIBUTION WIDTH CV (test code=RDW) 14.2 % 11.5-14.5 RED CELL DISTRIBUTION WIDTH SD (test code=RDW-SD) 49.7 fL 37.0-54.0 PLATELET COUNT (test code=PLT) 411 x10 3/uL 150-400 MEAN PLATELET VOLUME (test code=MPV) 11.5 fL 7.0-9.0 NEUTROPHIL % (test code=NT%) 86.6 % 56.0-77.0 IMMATURE GRANULOCYTE % (test code=IG%) 1.0 % 0.0-2.0 LYMPHOCYTE % (test code=LY%) 8.3 % 14.0-32.0 MONOCYTE % (test code=MO%) 3.9 % 4.8-9.0 EOSINOPHIL % (test code=EO%) 0.0 % 0.3-3.7 BASOPHIL % (test code=BA%) 0.2 % 0.0-2.0 NUCLEATED RBC % (test code=NRBC%) 0.0 % 0-0 NEUTROPHIL # (test code=NT#) 15.52 x10 3/uL 2.0-7.6 IMMATURE GRANULOCYTE # (test code=IG#) 0.18 x10 3/uL 0.00-0.03 LYMPHOCYTE # (test code=LY#) 1.48 x10 3/uL 1.0-3.8 MONOCYTE # (test code=MO#) 0.69 x10 3/uL 0.1-0.8 EOSINOPHIL # (test code=EO#) 0.00 x10 3/uL 0.0-0.2 BASOPHIL # (test code=BA#) 0.04 x10 3/uL 0.0-0.2 NUCLEATED RBC # (test code=NRBC#) 0.00 x10 3/uL 0.0-0.1 MANUAL DIFF REQUIRED (test code=MDIFF) NO RESPIRATORY VIRUS PANEL [id number] 12:28:00* Test Item Value Reference Range Comments RSV A PCR (test code=RSV A) Negative Negative RSV B PCR (test code=RSV B) Negative Negative INFLUENZA A (test code=FLUAPCR) Negative Negative INFLUENZA A SUBTYPE H1 (test code=FLUAH1) Negative Negative INFLUENZA A SUBTYPE H3 (test code=FLUAH3) Negative Negative INFLUENZA B (test code=FLUBPCR) Negative Negative PARAINFLUENZA TYPE 1 PCR (test code=PIF1) Negative Negative PARAINFLUENZA TYPE 2 PCR (test code=PIF2) Negative Negative PARAINFLUENZA TYPE 3 PCR (test code=PIF3) Negative Negative PARAINFLUENZA TYPE 4 PCR (test code=PIF4) Negative Negative RHINOVIRUS PCR (test code=RHINO) Negative Negative METAPNEUMOVIRUS PCR (test code=METAPNEU) Negative Negative ADENOVIRUS PCR (test code=ADENOPCR) Negative Negative BORDETELLA PERTUSSIS DNA PCR (test code=BORDPERDNA) Negative Negative B PARAPERTUSSIS BY PCR (test code=BPARAPCR) Negative Negative BORDETELLA HOLMESII (test code=BORDHOLM) Negative Negative Testing was performed using nucleic acid amplificationincluding Bordetella parapertussis/brochiseptica, Bordetella holmesii, and Bordetella pertussis. COMPLEMENT BETA C1 (test code=COMBC1) RVP Comment Comment Testing was performed using nucleic acid amplificationincluding influenza A, influenza A H1, influenza A H3,influenza B, RSV-A, RSV-B, Adenovirus, HumanMetapneumovirus, Parainfluenza 1,2,3 and 4, Rhinovirus, Bordetella parapertussis/brochiseptica, Bordetella holmesii, and Bordetella pertussis. B-TYPE NATRIURETIC [id number] 10:56:00* Test Item Value Reference Range Comments B-TYPE NATRIURETIC PEPTIDE (test code=BNP) 40.2 PG/ML 0-100 COMPREHENSIVE METABOLIC [id number] 08:19:00* Test Item Value Reference Range Comments SODIUM (test code=NA) 139 mEq/L 134-147 POTASSIUM (test code=K) 4.5 mEq/L 3.4-5.0 CHLORIDE (test code=CL) 103 mEq/L 100-108 CARBON DIOXIDE (test code=CO2) 32 mEq/L 21-33 ANION GAP (test code=GAP) 9 0-20 GLUCOSE (test code=GLU) 183 mg/dL 70-110 BLOOD UREA NITROGEN (test code=BUN) 16 mg/dL 7-18 GLOMERULAR FILTRATION RATE (test code=GFR) 125.9 80-90 Units of measure=ml/min/1.73 m2 CREATININE (test code=CREAT) 0.5 mg/dL 0.6-1.3 TOTAL PROTEIN (test code=PROT) 7.7 g/dL 6.4-8.2 ALBUMIN (test code=ALB) 2.90 g/dL 3.4-5.0 CALCIUM (test code=CA) 8.7 mg/dL 8.0-10.5 BILIRUBIN TOTAL (test code=BILT) 0.20 mg/dL 0.0-1.0 SGOT/AST (test code=AST) 12 IUnit/L 15-37 SGPT/ALT (test code=ALT) 19 IUnit/L 15-65 ALKALINE PHOSPHATASE TOTAL (test code=ALKP) 132 IUnit/L 20-125 [id number] 08:19:00* Test Item Value Reference Range Comments PHOSPHOROUS (test code=PHOS) 2.3 mg/dL 2.5-4.9 [id number] 08:19:00* Test Item Value Reference Range Comments MAGNESIUM (test code=MAG) 2.30 mg/dL 1.8-2.4 CBC W/AUTO [id number] 07:54:00* Test Item Value Reference Range Comments WHITE BLOOD CELL (test code=WBC) 12.51 x10 3/uL 4.5-11.0 RED BLOOD CELL (test code=RBC) 4.43 x10 6/uL 3.54-5.02 HEMOGLOBIN (test code=HGB) 12.1 g/dL 11.0-15.0 HEMATOCRIT (test code=HCT) 41.4 % 33.0-45.0 MEAN CELL VOLUME (test code=MCV) 93.5 fL 81.0-99.0 MEAN CELL HGB (test code=MCH) 27.3 pg 27.0-33.0 MEAN CELL HGB CONCETRATION (test code=MCHC) 29.2 g/dL 33.0-37.0 RED CELL DISTRIBUTION WIDTH CV (test code=RDW) 14.2 % 11.5-14.5 RED CELL DISTRIBUTION WIDTH SD (test code=RDW-SD) 49.2 fL 37.0-54.0 PLATELET COUNT (test code=PLT) 363 x10 3/uL 150-400 MEAN PLATELET VOLUME (test code=MPV) 11.4 fL 7.0-9.0 NEUTROPHIL % (test code=NT%) 86.8 % 56.0-77.0 IMMATURE GRANULOCYTE % (test code=IG%) 1.4 % 0.0-2.0 LYMPHOCYTE % (test code=LY%) 10.5 % 14.0-32.0 MONOCYTE % (test code=MO%) 1.1 % 4.8-9.0 EOSINOPHIL % (test code=EO%) 0.0 % 0.3-3.7 BASOPHIL % (test code=BA%) 0.2 % 0.0-2.0 NUCLEATED RBC % (test code=NRBC%) 0.0 % 0-0 NEUTROPHIL # (test code=NT#) 10.86 x10 3/uL 2.0-7.6 IMMATURE GRANULOCYTE # (test code=IG#) 0.18 x10 3/uL 0.00-0.03 LYMPHOCYTE # (test code=LY#) 1.31 x10 3/uL 1.0-3.8 MONOCYTE # (test code=MO#) 0.14 x10 3/uL 0.1-0.8 EOSINOPHIL # (test code=EO#) 0.00 x10 3/uL 0.0-0.2 BASOPHIL # (test code=BA#) 0.02 x10 3/uL 0.0-0.2 NUCLEATED RBC # (test code=NRBC#) 0.00 x10 3/uL 0.0-0.1 MANUAL DIFF REQUIRED (test code=MDIFF) NO URINALYSIS [id number] 18:52:00* Test Item Value Reference Range Comments UA COLOR (test code=COLU) YELLOW YEL/STRAW UA APPEARANCE (test code=APPU) CLEAR CLEAR UA GLUCOSE DIPSTICK (test code=DGLUU) 3+ NEGATIVE UA BILIRUBIN DIPSTICK (test code=BILU) NEGATIVE NEGATIVE UA KETONE DIPSTICK (test code=KETU) TRACE NEGATIVE UA SPECIFIC GRAVITY (test code=SGU) 1.027 1.005-1.030 UA BLOOD DIPSTICK (test code=NEYMAR) 1+ NEGATIVE UA PH DIPSTICK (test code=LIZET) 6.0 5.0-7.0 UA PROTEIN DIPSTICK (test code=PROU) NEGATIVE NEGATIVE UA UROBILINIOGEN DIPSTICK (test code=URO) 0.2 mg/dL 0.2-1.0 UA NITRITE DIPSTICK (test code=JOSEPHINE) NEGATIVE NEGATIVE UA LEUKOCYTE ESTERASE DIPSTICK (test code=LEUU) NEGATIVE NEGATIVE UA WBC (test code=WBCU) 0-3 WBC/HPF 0-3 UA RBC (test code=RBCU) 4-10 RBC/HPF 0-3 UA BACTERIA (test code=BACU) TRACE /HPF NONE SEEN UA SQUAMOUS CELLS (test code=SQU) 0-5 /HPF NONE SEEN UA MUCUS (test code=MUCU) TRACE /LPF NONE SEEN B-TYPE NATRIURETIC [id number] 15:05:00* Test Item Value Reference Range Comments B-TYPE NATRIURETIC PEPTIDE (test code=BNP) 6.2 PG/ML 0-100 BASIC METABOLIC [id number] 14:28:00* Test Item Value Reference Range Comments SODIUM (test code=NA) 138 mEq/L 134-147 POTASSIUM (test code=K) 3.9 mEq/L 3.4-5.0 CHLORIDE (test code=CL) 101 mEq/L 100-108 CARBON DIOXIDE (test code=CO2) 36 mEq/L 21-33 ANION GAP (test code=GAP) 5 0-20 GLUCOSE (test code=GLU) 109 mg/dL 70-110 BLOOD UREA NITROGEN (test code=BUN) 15 mg/dL 7-18 GLOMERULAR FILTRATION RATE (test code=GFR) 102.0 80-90 Units of measure=ml/min/1.73 m2 CREATININE (test code=CREAT) 0.6 mg/dL 0.6-1.3 CALCIUM (test code=CA) 8.7 mg/dL 8.0-10.5 [id number] 14:28:00* Test Item Value Reference Range Comments TROPONIN-I (test code=TROPI) < 0.015 ng/mL 0.000-0.045 Negative: <=0.045 Positive: >=0.046 Correlation with serial results, other cardiac markers andclinical findings is necessary to determine the clinicalsignificance of this result. Results using different methodologies should not be comparedto one another as quantitative results may vary by method. CBC W/AUTO [id number] 14:26:00* Test Item Value Reference Range Comments WHITE BLOOD CELL (test code=WBC) 13.32 x10 3/uL 4.5-11.0 RED BLOOD CELL (test code=RBC) 4.45 x10 6/uL 3.54-5.02 HEMOGLOBIN (test code=HGB) 12.1 g/dL 11.0-15.0 HEMATOCRIT (test code=HCT) 41.4 % 33.0-45.0 MEAN CELL VOLUME (test code=MCV) 93.0 fL 81.0-99.0 MEAN CELL HGB (test code=MCH) 27.2 pg 27.0-33.0 MEAN CELL HGB CONCETRATION (test code=MCHC) 29.2 g/dL 33.0-37.0 RED CELL DISTRIBUTION WIDTH CV (test code=RDW) 14.4 % 11.5-14.5 RED CELL DISTRIBUTION WIDTH SD (test code=RDW-SD) 49.6 fL 37.0-54.0 PLATELET COUNT (test code=PLT) 378 x10 3/uL 150-400 MEAN PLATELET VOLUME (test code=MPV) 11.1 fL 7.0-9.0 NEUTROPHIL % (test code=NT%) 68.3 % 56.0-77.0 IMMATURE GRANULOCYTE % (test code=IG%) 0.7 % 0.0-2.0 LYMPHOCYTE % (test code=LY%) 20.3 % 14.0-32.0 MONOCYTE % (test code=MO%) 7.6 % 4.8-9.0 EOSINOPHIL % (test code=EO%) 2.6 % 0.3-3.7 BASOPHIL % (test code=BA%) 0.5 % 0.0-2.0 NUCLEATED RBC % (test code=NRBC%) 0.0 % 0-0 NEUTROPHIL # (test code=NT#) 9.12 x10 3/uL 2.0-7.6 IMMATURE GRANULOCYTE # (test code=IG#) 0.09 x10 3/uL 0.00-0.03 LYMPHOCYTE # (test code=LY#) 2.70 x10 3/uL 1.0-3.8 MONOCYTE # (test code=MO#) 1.01 x10 3/uL 0.1-0.8 EOSINOPHIL # (test code=EO#) 0.34 x10 3/uL 0.0-0.2 BASOPHIL # (test code=BA#) 0.06 x10 3/uL 0.0-0.2 NUCLEATED RBC # (test code=NRBC#) 0.00 x10 3/uL 0.0-0.1 MANUAL DIFF REQUIRED (test code=MDIFF) NO LACTIC [id number] 14:26:00* Test Item Value Reference Range Comments LACTIC ACID (test code=LACT) 0.9 mmol/L 0.4-1.9 - XR CHEST 1 [id number] 14:10:00 FAX: Dylan Izquierdo MD [phone] [place]: St: REG Name: VANE MEDELISSA [facility] : [birth year] Age/S: 58/F [address] [place] [address] Unit #: [id number] Loc: [place] [address] Phys: Dylan Rosales MD Acct: [id number] Dis Date: Status: REG ER PHONE #: [phone] Exam Date: 09/04/2018 1400 FAX #: [phone] Reason: SOB EXAMS: CPT CODE: [id number] XR CHEST 1 V [id number] EXAM: XR CHEST 1 VIEW DATE: 09/04/2018 1:01 PM : 1960; Age: 58 years y/o Female INDICATION: SOB COMPARISON: May 29, 2018 TECHN IQUE: AP chest. FINDINGS/ IMPRESSION: L humberto, tubes and hardware: None. Heart, mediastinum and lungs: The heart size is enlarged but unchanged. Vascular calcifications are pr esent at the aorta. Minimal central venous congestion. No pulmonary adama a or consolidation. No pleural effusion. SL: [id number] at 1410 Reported and signed by: Tonja Mora D.O. CC: Dylan Rosales MD Technologist: Maninder Funk(Maninder) Trnscrd Date/Time/By: 09/04/2018 (8790) : By: [email or web address] Orig Print D/T: S: 09/04/2018 (5242) PAGE 1 Signed Report
[2019-01-18] MEDS ORDERED: BUPIVACAINE 0.25%/EPI 30ML SDV INJ ONE (08:14)
[2019-01-18] MEDS ORDERED: BUPIVACAINE 0.25% 30ML SDV INJ ONE (08:14)
[2019-01-18] MEDS: SODIUM CHLORIDE 0.9% 1000ML 1,000 ML IV SCH ×2 (10:10→19:15)
[2019-01-18] MEDS ORDERED: SCOPOLAMINE 1.5 MG PATCH TOP SCH (11:00)
[2019-01-18] MEDS ORDERED: IBUPROFEN 800MG/ 250ML 250 ML IV ONE (11:01)
[2019-01-18] MEDS ORDERED: ALBUTEROL SULF 0.083% NEB SOLN 3 ML NEB ONE (11:37)
[2019-01-18] MEDS ORDERED: MORPHINE SULFATE INJ 4 MG/ML INJ 1ML ONE (12:31)
--- OUTSIDE RECORDS SUMMARY | 2019-01-18 13:22 | XMS REPORT | Continuity of Care Document ---
Author Author [facility] Organization [facility] Address Unknown Phone Unavailable Care Team Providers [facility] Business [facility] Manager Name Role Phone [employer] Unavailable Unavailable Problems Problem Status Onset Date Classification Date Reported Comments Source M79.604 - PAIN IN RIGHT LEG Active 07/04/2016 [facility] [place] FHx: pneumonia Resolved Problem 11/23/2018 [facility], [facility] [place], [facility] [place] Hx of Sjogren's disease Resolved Problem 11/23/2018 [facility], [facility] [place], [facility] [place] Hx of osteoarthritis Resolved Problem 11/23/2018 [facility], [facility] [place], [facility] [place] High blood pressure Resolved Problem 11/23/2018 [facility], [facility] [place], [facility] [place] Morbid obesity Active Problem 11/23/2018 [facility], [facility] [place], [facility] [place] Osteoporosis Resolved Problem 11/23/2018 [facility], [facility] [place], [facility] [place] Small fiber polyneuropathy Resolved Problem 11/23/2018 [facility], [facility] [place], [facility] [place] Medications No Data Provided for This Section Allergies, Adverse Reactions, Alerts Substance Category Reaction Severity Reaction type Status Date Reported Comments Source Antihistamine Assertion Drug allergy Active [facility] Immunizations No Data Provided for This [...] of the pelvis and bilateral hips. 01/01/2019 [facility] Shoulder 2+ Views Bilateral DX EXAM: [...] are recommended. This exam was interpreted at [id number] for [facility]. 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 CLINICAL INDICATION: bilateral leg pain. Suspect [...] This exam was dictated and interpreted by [id number] for [facility]. Leida Bryant M.D. zina/víctor:11/24/2015 14:15:48 Client Architect: Leonie MOORE (R)([place]), [facility] [...] IMPRESSION: No acute cardiopulmonary abnormality identified. 12/22/2014 [facility] Consultation Notes No Data Provided for This Section Discharge Summaries No Data Provided for This Section History and Physicals No Data Provided for This Section Vital Signs No Data Provided for This Section Encounters Location Location Details Encounter Type Encounter Number Reason For Visit Attending Provider ADM Date DC Date Status Source [facility] [place] [facility] [id number] Yogesh Corea 12/22/2014 12/23/2014 [facility] [place] [facility] [id number] Yogesh Corea 11/24/2015 11/25/2015 [facility] [place] [facility] [id number] Yogesh Corea 03/28/2016 03/29/2016 [facility] [place] [facility] [id number] [facility] 07/03[facility]2016 Active [facility] Out[facility] [id number] [facility] 08/30/2016 Active [facility] [place] [facility] [id number] Addie Morse 08/30/2016 08/31/2016 [facility] [place] [facility] [place] [facility] [id number] Yogesh Corea 12/16/2017 12/17/2017 [facility] [place] [facility] [id number] Yogesh Corea 12/16/2017 12/17/2017 [facility] [place] Outpatient [id number] ADDIE UNIQUE 05/06/2018 Active [facility] [id number] Addie Unique 05/06/2018 05/06/2018 [facility] Procedures Procedure Code Date Perfomer Comments Source Ankle fusion [id number] [facility] [place] Hysterectomy [id number] [facility] [place] Ankle fusion [id number] [facility] Hysterectomy [id number] [facility] Ankle fusion [id number] [facility] [place] Hysterectomy [id number] [facility] [place] Assessment and Plan No Data Provided for [...] Cessation Counseling No entered on: 07/03/16 07/03/2016 [facility] Social History TypeResponse Substance Abuse Use: [...]
[2019-01-18] MEDS: ONDANSETRON HCL INJ 2MG/ML 2ML 2 MG/ML VIAL IV PRN (14:37)
[2019-01-18] MEDS: MORPHINE SULFATE INJ 4 MG/ML INJ 1ML IV PRN ×2 (14:37→19:15)
[2019-01-18 15:34] VITALS: BP 133/62
[2019-01-18 15:44] VITALS: BP 133/62
[2019-01-18] MEDS ORDERED: ACETAMINOPHEN/CODEINE 300MG - 30MG TAB PO PRN (15:45)
[2019-01-18 16:02] VITALS: BP 133/62
--- NOTE | 2019-01-18 16:36 | History and Physical ---
CHIEF COMPLAINT: "I have weight loss surgery." HISTORY OF PRESENT ILLNESS: This is a 58-year-old white woman, who today underwent successful laparoscopic sleeve gastrectomy and hiatal hernia repair. The surgery was performed by her bariatric surgeon, namely Dr. Alexi Vargas. The patient currently is wearing a BiPAP machine because she has severe sleep apnea and she experienced hypoxia in the post anesthesia care unit. The patient currently voiced no complaints. REVIEW OF SYSTEMS: GENERAL: Weight is stable. No fever or chills. HEENT: No headaches. No vision changes. CARDIOVASCULAR/RESPIRATORY: Hypoxia as per HPI in the post anesthesia care unit. No chest pain or tightness. GI: No nausea, vomiting, or diarrhea. : Dunaway catheter removed. NEUROMUSCULAR: No limb weakness or numbness, but she does have arthritic joint pain secondary to rheumatoid arthritis and osteoarthritis. PAST MEDICAL HISTORY: 1. Rheumatoid arthritis. 2. Sjogren syndrome. 3. Osteoarthritis. 4. Osteoporosis. 5. Extreme obesity, BMI 47. 6. Hypertensive heart disease. 7. Chronic diastolic congestive heart failure. 8. Obstructive sleep apnea. 9. Hyperlipidemia. ALLERGIES: HYDROCODONE. FAMILY HISTORY: Multiple family members with autoimmune disorder. HOME MEDICATIONS: 1. Spironolactone 50 mg daily. 2. Tramadol 50 mg q.6 hours p.r.n. pain. 3. Pramipexole 0.25 mg every night. 4. Aspirin 81 mg daily. 5. Gabapentin 1800 mg at bedtime. 6. Plaquenil 200 mg daily. 7. Isosorbide mononitrate 30 mg every night. 8. Metoprolol succinate 50 mg b.i.d. 9. Pravastatin 10 mg at bedtime. SOCIAL HISTORY: This woman is , lives with her . She is not an employe. Denies any history of tobacco or alcohol use. PHYSICAL EXAMINATION: GENERAL: She is awake, alert, fluent, very pleasant. She is currently wearing a BiPAP mask. VITAL SIGNS: Height 5 feet 5 inches, weight 285 pounds, BMI 47. Blood pressure earlier was a 159/78, currently is 133/60, pulse 62, respiratory rate is 18 oxygen saturation is 100% on a BiPAP machine, temperature 98.4. INTEGUMENT: Skin is warm and dry. No pallor, jaundice, or diaphoresis. HEENT: Anicteric sclerae. Moist mucous membranes. NECK: Supple. No evidence of jugular venous distention. CARDIOVASCULAR: Distant heart sounds. Regular rate and rhythm. LUNGS: No rales, no rhonchi, or wheezes. ABDOMEN: Obese, benign. No bowel sounds are appreciated. The patient's laparoscopic incisions are clean, dry, and intact. No drainage appreciated. EXTREMITIES: No edema or deformity. She is currently wearing sequential compression devices. NEUROLOGIC: Intact. No gross focal deficits appreciated. DIAGNOSES: 1. Status post laparoscopic sleeve gastrectomy with hiatal hernia repair. 2. Extreme obesity, BMI 47, complicating underlying hypertension and sleep apnea. 3. Obstructive sleep apnea. 4. Rheumatoid arthritis. 5. Hypertensive heart disease. 6. Chronic diastolic congestive heart failure. PLAN: 1. We will continue Plaquenil for the patient's rheumatoid arthritis. 2. We will continue BiPAP machine for the patient's sleep apnea. 3. Continue congestive heart failure medical management with metoprolol succinate, spironolactone. 4. Follow electrolytes and renal function. 5. Encourage incentive spirometer use to prevent atelectasis. 6. Continue sequential compression devices and subcutaneous enoxaparin to prevent deep venous thrombosis. 7. Mobilize physical therapy. 8. Pain control. 9. Intravenous fluids. 10. We will allow the patient to take her home medications with small sips of water tonight and tomorrow morning. The patient was started on clear liquid diet. I spent 45 minutes in the care of this patient. MD TENA Blanc/JASMYNE /[id number] MTDD
[2019-01-18] MEDS: TRAMADOL HCL 50 MG TAB PO SCH ×2 (16:45→23:36)
--- NOTE | 2019-01-18 17:05 | Operative Report ---
DATE OF PROCEDURE: 01/18/2019 SURGEON: Alexi Vargas MD PREOPERATIVE DIAGNOSES: 1. Morbid obesity, BMI 47. 2. Hypertension. 3. Congestive heart failure. 4. Obstructive sleep apnea. 5. Chronic obstructive pulmonary disease. POSTOPERATIVE DIAGNOSES: 1. Morbid obesity, BMI 47. 2. Hypertension. 3. Congestive heart failure. 4. Obstructive sleep apnea. 5. Chronic obstructive pulmonary disease. 6. Hiatal hernia. PREOPERATIVE INDICATION: Treat disease, prevent complications related to comorbid conditions of obesity. PROCEDURES: 1. Laparoscopic vertical sleeve gastrectomy. 2. Laparoscopic hiatal hernia repair. 3. Application of human connective tissue allograft to augment damaged tissues (CPT 30765, product code [id number]). ANESTHESIA: General. TIP STRETCHER: Josh Bobby, surgical services assistant (needed due to complexity of case). FLUIDS: 1 L of crystalloid. ESTIMATED BLOOD LOSS: 10 mL. DRAINS: None. COMPLICATIONS: None. SPECIMENS: Partial stomach. GRAFTS: [employer] Human allograft injected subcutaneously. FINDINGS: 1. Small hiatal hernia. 2. Otherwise normal upper GI anatomy. 3. Negative intraoperative EGD leak test. PROCEDURE IN DETAIL: The patient was brought to the operating room and was intubated under general endotracheal anesthesia. She was sterilely prepped and draped in the usual fashion. A preprocedure pause was performed identifying the patient, use of preoperative antibiotics, intended procedure, and staff surgeon. Access was gained via a 5 mm left subcostal incision using a Veress needle. Abdomen was insufflated. Four additional trocars were placed in standard positions. The liver retractor was used to expose the stomach and the hiatus. The greater curvature of stomach was mobilized using the [place] LigaSure device about 4 cm proximal to the pyloric valve to the left kirby of the diaphragm. There was a small hiatal hernia. I dissected out the anterior portion of this from the right and left kirby of the diaphragm as well as anteriorly and placed to a Surgidac suture to fix the hiatal hernia. Then, an adult size endoscope was placed along the lesser curvature of the stomach. The greater curvature of the stomach was resected with multiple firings of a purple load Endo CORINNE Covidien stapling device, which was reinforced with SeamGuard, it took a total of four staple firings to resect the greater curvature. We then removed the specimen through the right periumbilical port site. The port site was closed with 0 Vicryl suture using the Manuel Yanes technique in a [id number] fashion. We conducted an intraoperative EGD leak test, no leaks were identified. We then desufflated the abdomen, removed the trocars. Incision sites were closed with 4-0 Monocryl suture in a subcu fashion. 0.25% bupivacaine was used both at the preperitoneal incision sites. We also applied [employer] Human connective tissue allograft to augment tissue growth after surgery. Dermabond dressings were applied. The patient tolerated the procedure well. Type of wound was type 2, clean and contaminated. MD PREETHI Garay/JASMYNE /[id number]
[2019-01-18] MEDS ORDERED: DEXAMETHASONE SOD PHOS INJ 4 MG/ML VIAL ONE (18:22)
[2019-01-18] MEDS ORDERED: SUCCINYLCHOLINE 200 MG/10 ML SYR ONE (18:22)
[2019-01-18] MEDS ORDERED: ROCURONIUM BROMIDE 10 MG/ML 5ML VIAL ONE (18:22)
[2019-01-18] MEDS ORDERED: LIDOCAINE HCL 2% LOCAL INJ 5 ML SDV VIAL INJ ONE (18:22)
[2019-01-18] MEDS ORDERED: NEOSTIGMINE 5 MG/5ML SYR ONE (18:22)
[2019-01-18] MEDS ORDERED: GLYCOPYRROLATE 1 MG TAB ONE (18:22)
[2019-01-18] MEDS ORDERED: ACETAMINOPHEN 1000 MG/100 ML IV ONE (18:22)
[2019-01-18] MEDS ORDERED: SEVOFLURANE INHAL SOLN 250 ML PEN BTL ONE (18:22)
[2019-01-18] MEDS ORDERED: ONDANSETRON HCL INJ 2MG/ML 2ML 2 MG/ML VIAL ONE (18:22)
[2019-01-18] MEDS ORDERED: PROPOFOL IV EMULSION 10 MG/ML 20 ML VIAL ONE (18:22)
[2019-01-18 19:00] VITALS: BP 141/63
[2019-01-18] MEDS ORDERED: FENTANYL CITRATE/PF 100MCG/2 ML INJ ONE (19:03)
[2019-01-18] MEDS ORDERED: MIDAZOLAM HCL 2 MG/2 ML VIAL ONE (19:03)
[2019-01-18] MEDS: METOPROLOL SUCCINATE 50 MG TAB XL PO SCH (19:20)
[2019-01-18 20:00] VITALS: BP 141/63
[2019-01-18] MEDS ORDERED: PRAMIPEXOLE DIHYDROCHLORIDE 0.25 MG TAB PO SCH (21:00)
[2019-01-18] MEDS ORDERED: GABAPENTIN 600 MG PO SCH (21:00)
[2019-01-18] MEDS ORDERED: PRAVASTATIN 20 MG TAB PO SCH (21:00)
[2019-01-18] MEDS: ENOXAPARIN SOD INJ 40 MG/0.4 ML SYR SC SCH (21:06)
[2019-01-18] MEDS: ALBUTEROL/IPRATROPIUM 3 ML NEB NEB SCH (23:00)
[2019-01-19] VITALS: BP 111/68
[2019-01-19] MEDS: ALBUTEROL/IPRATROPIUM 3 ML NEB NEB SCH ×3 (03:00→11:00)
[2019-01-19 04:15] VITALS: BP 133/66
[2019-01-19] MEDS: MORPHINE SULFATE INJ 4 MG/ML INJ 1ML IV PRN (04:56)
[2019-01-19 05:08] LABS: BASOPHILS % 0.3 % (0.0-1.0); EOSINOPHILS % 0.1 % (0.0-6.0); HEMATOCRIT 38.6 % (34.2-44.1); LYMPHOCYTES # (AUTO) 1.9 (1.0-3.2); MEAN CORPUSCULAR HEMOGLOBIN 27.5 pg (28-32); MEAN CORPUSCULAR HGB CONC 31.1 g/dL (31-35); MEAN CORPUSCULAR VOLUME 88.5 fL (81-99); MONOCYTES # (AUTO) 0.6 (0.2-0.8); MONOCYTES % 5.9 % (4.4-11.3); NEUTROPHILS # (AUTO) 7.8 (2.1-6.9); NEUTROPHILS % 75.4 % (38.7-80.0); PLATELET COUNT 259 x10e3/uL (140-360); RED BLOOD COUNT 4.36 x10e6/uL (3.6-5.1); RED CELL DISTRIBUTION WIDTH 15.3 % (11.7-14.4)
[2019-01-19] MEDS: SODIUM CHLORIDE 0.9% 1000ML 1,000 ML IV SCH (05:25)
[2019-01-19 05:35] LABS: ALANINE AMINOTRANSFERASE 15 IU/L (0-55); ALBUMIN 3.4 g/dL (3.5-5.0); ALBUMIN/GLOBULIN RATIO 0.9 (0.8-2.0); ALKALINE PHOSPHATASE 90 IU/L (40-150); ANION GAP 13.3 mmol/L (8-16); BLOOD UREA NITROGEN 15 mg/dL (7-26); BUN/CREATININE RATIO 21 (6-25); CALCIUM 8.9 mg/dL (8.4-10.2); CARBON DIOXIDE 30 mmol/L (22-29); CHLORIDE 99 mmol/L (98-107); CREATININE, SERUM 0.71 mg/dL (0.57-1.11); EST GLOMERULAR FILTRATION RATE > 60 ML/MIN (60-); GLUCOSE 126 mg/dL (74-118); MAGNESIUM 1.6 MG/DL (1.3-2.1); PHOSPHORUS 2.6 MG/DL (2.3-4.7); POTASSIUM 4.3 mmol/L (3.5-5.1); SODIUM 138 mmol/L (136-145)
[2019-01-19] MEDS: TRAMADOL HCL 50 MG TAB PO SCH (06:19)
[2019-01-19 08:00] VITALS: BP 145/87
[2019-01-19] MEDS ORDERED: HYDROCODONE/APAP 7.5MG-325MG 1 EA TAB PO PRN (08:00)
--- NOTE | 2019-01-19 08:25 | NUR ---
Progress Note S: No complaints; ambulating O: AF, VSS General- no acute distress Abdomen- soft, incisions c/d/i A/P: POD 1, s/p lap sleeve gastrectomy with incidental hiatal hernia repair -Clears, ambulate -IV fluids until discharge -OK by me to discharge home -Diet and follow up instructions given to patient
[2019-01-19] MEDS: METOPROLOL SUCCINATE 50 MG TAB XL PO SCH (09:00)
[2019-01-19] MEDS ORDERED: NON-FORMULARY MEDICATION (Pravastatin Sodium 1 TAB) PO SCH (09:00)
[2019-01-19] MEDS ORDERED: HYDROXYCHLOROQUINE SULFATE 200 MG TAB PO SCH (09:00)
[2019-01-19] MEDS ORDERED: SPIRONOLACTONE 25 MG TAB PO SCH (09:00)
[2019-01-19] MEDS ORDERED: ISOSORBIDE MONONITRATE 30 MG TAB CR PO SCH (09:00)
--- NOTE | 2019-01-19 10:04 | Discharge Summary ---
ADMISSION DIAGNOSES: 1. Extreme obesity, BMI of 47, complicating underlying hypertension, congestive heart failure, and obstructive sleep apnea. 2. Hypertensive heart disease. 3. Chronic diastolic congestive heart failure. 4. Obstructive sleep apnea. 5. Rheumatoid arthritis. DISCHARGE DIAGNOSES: 1. Status post laparoscopic sleeve gastrectomy with hiatal hernia repair. 2. Extreme obesity, BMI of 47, complicating underlying hypertension, sleep apnea, congestive heart failure. 3. Obstructive sleep apnea. 4. Hypertensive heart disease. 5. Chronic diastolic congestive heart failure. 6. Rheumatoid arthritis. HOSPITAL COURSE: The patient is a 58-year-old white woman, who was admitted to [facility] with diagnoses of extreme obesity, BMI 47, complicated underlying hypertension, sleep apnea, and congestive heart failure. During this hospitalization, the patient underwent successful laparoscopic sleeve gastrectomy with hiatal hernia repair. This surgery was performed by her bariatric surgeon, namely Dr. Alexi Vargas. The patient tolerated surgery well. The patient's brief hospitalization was unremarkable. CONDITION ON DISCHARGE: Stable. DISCHARGE MEDICATIONS: 1. Tylenol No. 3 one pill every 4 hours p.r.n. pain, 30 prescribed, no refills. 2. Ondansetron 4 mg p.o. q.6 hours p.r.n. nausea and vomiting, 20 prescribed, no refills. 3. Spironolactone 50 mg daily. 4. Tramadol 50 mg every 6 hours p.r.n. pain. 5. Pramipexole 0.25 mg every night. 6. Aspirin 81 mg daily. 7. Gabapentin 1800 mg at bedtime. 8. Plaquenil 200 mg daily. 9. Isosorbide mononitrate 30 mg every night. 10. Metoprolol succinate 50 mg b.i.d. 11. Pravastatin 10 mg at bedtime. FOLLOWUP INSTRUCTIONS: The patient is instructed to follow up with Dr. Alexi Vargas in 1 week and with her primary care physician at [facility] in 2 weeks. MD TENA Blanc/JASMYNE /[id number] cc: Alexi Vargas MD
[2019-01-19 10:19] VITALS: BP 141/91
[2019-01-19] MEDS: ENOXAPARIN SOD INJ 40 MG/0.4 ML SYR SC SCH (10:37)
[2019-01-19] MEDS: ONDANSETRON HCL INJ 2MG/ML 2ML 2 MG/ML VIAL IV PRN (10:39)
[2019-01-19 11:14] VITALS: BP 141/91
== END 2019-01-19 12:06 | DRG 620 ==
LOC: OR 07:41 → PACU V 12:58 → IMCU 14:10
PROVIDERS: ADMIT Internal Medicine; ATTEND Internal Medicine
PROC: 0BUT4KZ Supplement Diaphragm with Nonautologous Tissue Substitute, Percutaneous Endoscopic Approach (ICD-10-PCS; 2019-01-18)
PROC: 0DB64Z3 Excision of Stomach, Percutaneous Endoscopic Approach, Vertical (ICD-10-PCS; principal; 2019-01-18 10:00)
DX: E66.01 Morbid (severe) obesity due to excess calories (principal); I50.32 Chronic diastolic (congestive) heart failure; K44.9 Diaphragmatic hernia without obstruction or gangrene; R09.02 Hypoxemia; M06.9 Rheumatoid arthritis, unspecified; M35.00 Sjogren syndrome, unspecified; M19.90 Unspecified osteoarthritis, unspecified site; Z68.42 Body mass index [BMI] 45.0-49.9, adult; I11.0 Hypertensive heart disease with heart failure; G47.33 Obstructive sleep apnea (adult) (pediatric); E78.5 Hyperlipidemia, unspecified; Z88.5 Allergy status to narcotic agent; Z84.89 Family history of other specified conditions; J44.9 Chronic obstructive pulmonary disease, unspecified
CPT/HCPCS: 36415; 71046; 80048; 80053; 83735; 84100; 85025; 93005; 94660; J0690; J1100; J1650; J2001; J2250; J2270; J2405; J3010; J7030